=== PATIENT | female | born 1940 | race Caucasian/White ===

== ENCOUNTER → 2017-05-28 08:58 | Outpatient (CLI) | payer MEDICARE, BC, SELFPAY ==
--- NOTE | 2017-05-28 09:09 | HPBD_ITS ---
STUDY: DUAL ENERGY X-RAY ABSORPTIOMETRY / DXA REASON FOR EXAM: Female, 77 years old. The patient is postmenopausal. Loss of height. TECHNIQUE: Bone Mineral Density (BMD) measurements of lumbar spine and bilateral hips were obtained. COMPARISON: None. FINDINGS: Lumbar Spine (L1-L4): g/cm2 (1.023) / T-score (-1.3) / Z-score (0.5) Findings are suggestive of osteopenia with a moderate fracture risk. Left Femur Total: g/cm2 (0.847) / T-score (-1.3) / Z-score (0.6) Left Femoral Neck: g/cm2 (1.0-4) / T-score (-0.1) / Z-score (1.9) Right Femur Total: g/cm2 (0.832) / T-score (-1.4) / Z-score (0.5) Right Femoral Neck: g/cm2 (0.866) / T-score (-1.2) / Z-score (0.8) HPBD/Dexa Bone Density Study (HP) IMPRESSION: The patient is considered osteopenic as outlined below according to World Evan Organization (WHO) criteria with a moderate fracture risk. Reference Information: The T-score is the number of standard deviations above or below the standard which is normal for young adults at their peak bone mineral density. The World Health Organization (WHO) interprets the T-scores as follows: Above -1 Normal bone density Between -1 and -2.5 Osteopenia Equal to / or below -2.5 Osteoporosis As a practical clinical guideline, osteopenia may be graded as follows: Mild -1 through -1.5 Moderate -1.6 through -2.0 Severe -2.1 through -2.4 The Z-score is the number of standard deviations above or below age-matched controls. A Z-score of less than -1.5 would be considered abnormal. References: 1. NIH Osteoporosis and Related Bone Diseases http://www.osteo.org 2. International Society for Clinical Densitometry http://www.iscd.org 3. National Osteoporosis Foundation http://www.nof.org Electronically Signed: Srinivas Moreno MD at 13:00 EDT Tel [phone], Service support ,
--- NOTE | 2017-05-28 09:10 | HPBI_ITS ---
MAMMOGRAPHY - BILATERAL SCREENING REASON FOR EXAM: Female, 77 years old. Routine annual screening examination. PERTINENT HISTORY: Non-contributory. TECHNIQUE: Digital bilateral breast osorio (3D mammographic acquisition) in the CC and MLO projections. 2-D mediolateral oblique (MLO) and craniocaudad (CC) views of both breasts were obtained. CAD: Full Field Digital Mammography with Computer Added Detection was performed. COMPARISON: Comparison is made with prior x-ray examination dated February 13, 2016. FINDINGS: Breast Composition: The breasts are heterogeneously dense, which may obscure small masses. There are no dominant masses or suspicious calcifications. Stable scattered bilateral calcifications. No other significant abnormalities are identified. There has been no significant change since the prior study. HPBI/SCREENING MAMM (CAD), BILAT IMPRESSION: Stable bilateral screening mammogram. Yearly follow-up mammogram recommended. (A) ASSESSMENT CATEGORY: BIRADS Category 2: Benign. A letter regarding these results will be sent to the patient by the facility within 30 days. Approximately 10% of breast cancers are not detected by mammography. A normal mammogram should not delay biopsy of a clinically suspicious abnormality. [id number] Electronically Signed: Srinivas Moreno MD at 12:26 EDT Tel [phone], Service support ,
== END ==
PROVIDERS: Family Provider Nurse Practitioner; PCP Nurse Practitioner; Visit Provider Nurse Practitioner
DX: Z12.31 Encounter for screening mammogram for malignant neoplasm of breast (principal); Z78.0 Asymptomatic menopausal state
CPT/HCPCS: 77063; 77067; 77080

== ENCOUNTER → 2017-07-30 08:10 | Outpatient (CLI) | payer MEDICARE, BC, SELFPAY ==
[2017-07-30 09:21] LABS: Color, Urine Yellow (Yellow); Glucose, Dipstick Normal (Normal); Ketone-Dipstick Negative (Negative); Leukocyte Esterase-Dipstick 500 /ul (Negative); Nitrite-Dipstick Positive (Negative); Occult Blood-Urine Negative /ul (Negative); Protein-Dipstick 15 mg/dl (Negative); Urine Bilirubin Dipstick Negative (Negative); Urine Clarity Clear (Clear); Urine Urobilinogen Normal (Normal)
[2017-07-30 09:30] LABS: Absolute Lymphocyte Count 2.52 X10^3/ul (0.83-4.51); Absolute Neutrophil Count 3.3 X10^3/uL (2.0-7.7); Basophil# 0.02 X10^3/uL; Basophil% 0.3 % (0-1); Eosinophil# 0.13 X10^3/uL; Eosinophils% 2.1 % (0-5); Hematocrit 45.2 % (37-47); Hemoglobin 15.3 g/dl (12.0-15.0); Lymphocyte # 2.52 X10^3/ul (4.0); Lymphocyte % 39.9 % (19-41); Mean Corp Hgb Conc 33.8 g/gl (32-36); Mean Corpuscular Hgb 30.7 pg (27.0-32.0); Mean Corpuscular Volume 90.6 fL (81-99); Mean Platelet Vol. 11.1 fl (6.2-12.0); Monocyte# 0.38 X10^3/uL; Neutrophil # 3.26 X10^3/uL (2.7-7.7); Neutrophil % 51.5 % (47-70); Platelet Count 199 K/mm3 (150-450); RBC Distribution Width CV 13.3 % (11.6-14.6); RBC Distribution Width SD 43.4 fl (35.1-43.9); Red Blood Count 4.99 M/mm3 (4.2-5.4); White Blood Count 6.3 K/mm3 (4.4-11.0)
[2017-07-30 09:31] LABS: POSITIVE COUNT NO; POSITIVE DIFFERENTIAL NO; POSITIVE MORPHOLOGY NO
[2017-07-30 09:46] LABS: Microalbumin,Random Urine 9.5 mg/L (NO RANGE EST.); Microalbumin:Creatinine Ratio 13.6 mg/g CRE (<30 mg/g CRE)
[2017-07-30 10:08] LABS: AST(SGOT) 14 U/L (15-37); Alanine Aminotransfer ALT/SGPT 15 U/L (13-56); Albumin, Serum 3.7 g/dL (3.2-5.0); Alkaline Phosphatase 83 U/L (45-117); Anion Gap 9 (5-15); BUN 14 mg/dL (7-18); BUN/Creat Ratio 19.1 RATIO (10-20); Calcium,Total 8.9 mg/dL (8.5-10.1); Chloride 98 mmol/L (98-107); Cholesterol 214 mg/dL (200); Creatinine, Serum 0.73 mg/dL (0.55-1.02); EST Glomerular Filtration Rate 82 mL/min (>60); Est Glom Filt Rate - Afr Amer 99 mL/min (>60); Globulin 3.8 g/dL (2.2-4.2); Glucose 97 mg/dL (74-106); High Density Lipoprotein 51 mg/dL; Protein, Total 7.5 g/dL (6.4-8.2); Sodium Level 138 mmol/L (136-145); Thyroid Stim Hormone (TSH) 7.18 uIU/mL (0.358-3.74); Triglycerides 178 mg/dL; Very Low Density Lipoprotein 36 mg/dL (5-40)
== END ==
PROVIDERS: Family Provider Nurse Practitioner; PCP Nurse Practitioner; Visit Provider Nurse Practitioner
DX: I10 Essential (primary) hypertension (principal); E78.5 Hyperlipidemia, unspecified
CPT/HCPCS: 36415; 80053; 80061; 81002; 82043; 82570; 84443; 85025

== ENCOUNTER 2018-06-11 07:52 | Day surgery (SDC) | payer MEDICARE, BC, SELFPAY ==
[2018-06-03 09:17] VITALS: BMI 31.2
--- NOTE | 2018-06-03 09:27 | HP_ITS ---
Intake Vital Signs 06/03/18 Height 5 ft 4 in 06/03/18 Weight: 182 lb 06/03/18 Body Mass Index (BMI) 31.2 06/03/18 Blood Pressure 129/75 H 06/03/18 Blood Pressure Location Rt brachial 06/03/18 Blood Pressure Position Sitting 06/03/18 Respiratory Rate 20 H 06/03/18 Pulse Rate 70 06/03/18 Pulse Source Monitor 06/03/18 Temperature 98.2 F 06/03/18 Temperature Source Oral 06/03/18 Pulse Ox 95 06/03/18 Oxygen Delivery Method room air Intake Visit Reasons: SCREENING C-SCOPE HX OF POLYPS Evaporator Required: No Is patient in pain?: No Allergies No Known Allergies Allergy (Unverified 06/03/18 09:18) Medications fluticasone 50 mcg/actuation nasal spray,suspension 1 spray INTRANASAL DAILY 06/03/18 [History Confirmed 06/03/18] hydrochlorothiazide 12.5 mg tablet 12.5 mg PO DAILY 06/03/18 [History Confirmed 06/03/18] levothyroxine 50 mcg tablet 50 mcg PO DAILY 06/03/18 [History Confirmed 06/03/18] [id number]-HY 200 mcg-vit K 15 mcg-lycope 150 kqq-pchsqi-ivll tablet 2 tab PO DAILY 06/03/18 [History Confirmed 06/03/18] PFSH Medical History Hemorrhoids (Acute) Thyroid disease (Acute) Hypertension (Chronic) Surgical History History of hysterectomy (Acute) history orif left ankle (Acute) Social History Smoking Status: Never smoker alcohol intake: current alcohol intake frequency: a few times a month substance use type: does not use ROS General General: No weight change, appetite, fatigue, colon cancer, breast cancer or weakness HEENT HEENT: No difficulty swallowing, eye injury, eye surgery, swollen glands or hoarseness Endo Endocrine: Yes thyroid disease; no diabetes mellitus, thyroid cancer, Hair loss, heat intolerance or cold intolerance Skin Skin: No rash or changing moles Breast Breast: No left breast lump, right breast lump, nipple discharge, breast pain, abnormal mammogram, abnormal US or breast enlargement Musc Musculoskeletal: No back problems, arthritis, rheumatoid arthritis, gout or joint pain Cardio Cardiovascular: Yes high blood pressure; no murmur, pacemaker, heart disease, atrial fibrillation, heart attack, heart stent, palpitations, shortness of breat with exertion or chest pain Psych Psychiatric: No depression, anxiety or hearing voices Resp Respiratory: No shortness of breath, No sleep apnea, No cough, No COPD, No asthma, No emphysema, No wheezing Gastro Gastrointestinal: No abdominal pain, No nausea or vomiting, No diarrhea, No constipation, No blood in stool, No acid reflux, Yes hemorrhoids, No ulcers, No gallbladder problem, No black,tarry stools Reza Hematologic: No blood thinners, No blood disorders, No bleeding, No anemia, No blood clots Neuro Neurologic: No system reviewed and no additional complaints, except as docu, No as per HPI, No abnormal walking, No abnormal hearing, No abnormal movements, No abnormal speech, No behavioral changes, No burning sensations, No confusion, No seizure-like activity, No unsteadiness, No dizziness, No localized weakness, No frequent falls, No headache(s), No lack of coordination, No loss of vision, No memory loss, No numbness, No other visual disturbances, No radiating pain, No restless legs, No sensory deficit, No fainting, No tingling, No tremor(s), No weakness, No other Exam Const General: no acute distress, well developed, well hydrated Orientation: oriented to person, oriented to place, oriented to time [facility] Head: normocephalic, atraumatic Ears: external ears normal Mouth: moist mucous membranes Eyes Sclera: sclerae normal Pupils: normal by confrontation Neck Neck: no lymphadenopathy noted Neck mass: No Thyroid: thyroid normal, symmetrical Chest Chest palpation & inspection: normal inspection of the chest Breast Palpation: No nipple discharge Resp Effort & Inspection: normal respiratory effort Auscultation: clear to auscultation bilaterally Percussion: percussion normal Cardio Rate: regular rate Rhythm: regular rhythm Heart Sounds: no murmurs GI Palpation: soft, no hepatosplenomegaly, no masses, nontender Rectal Exam: other Other: Rectal exam deferred. Extrem General: normal to inspection, no clubbing, cyanosis or edema Assessment & Plan Problems 1. Personal history of colonic polyps Z86.010 Plan I have discussed the above with the patient. I have offered the patient colonoscopy for evaluation. I have explained the risks/benefits of the procedure and described the procedure. I have discussed the risks with the patient, including but not limited to: infection, bleeding, perforation of the GI tract requiring emergency surgery, inability to complete the procedure, injury to any internal organs, complications of anesthesia, etc. - the patient understands and agrees to proceed. I have answered all the patient's questions to the patient's satisfaction and the patient has no further questions. The patient has been given instructions for the colon cleansing preparation. Coding Level of Care Code Off vis,new,level 3 Diagnoses Personal history of colonic polyps Z86.010
[2018-06-11 08:15] VITALS: BP 139/69; PULSE 68; RESP 16; TEMP 36.8; O2SAT 98; BMI 30.6
[2018-06-11 09:05] VITALS: BP 114/66; BP 139/69; PULSE 61; RESP 14; TEMP 37; O2SAT 96
[2018-06-11 09:10] VITALS: BP 117/71; BP 139/69; PULSE 61; RESP 16; O2SAT 97
--- NOTE | 2018-06-11 09:11 | OP.ENDO_ITS ---
06/11/2018 Daphne Hidalgo, ANNELISE [address] [place] [address] Re : Colonoscopy procedure for Jessika Noser Dear Ms. Hidalgo This procedure was performed on Monday, June 11, 2018. My impressions and recommendations are as follows: Impressions : - Diverticulosis in the entire examined colon. No specimens collected. - Non-bleeding internal hemorrhoids. - The examination was otherwise normal. Recommendations : - Discharge patient to home. - Resume previous diet. - Continue present medications. - Repeat colonoscopy in 5 years for surveillance. - Return to my office in 1 week. My findings are described in the full procedure note, which is enclosed. If I can be of further assistance, please feel free to contact me at Doctor phone number(s): , Fax: [phone], Work: . Sincerely, MD Law Shrestha MD 06/11/2018 9:11:24 AM This report has been signed electronically.
[2018-06-11 09:15] VITALS: BP 116/68; BP 139/69; PULSE 60; RESP 16; O2SAT 97
[2018-06-11 09:20] VITALS: BP 121/63; BP 139/69; PULSE 60; RESP 16; TEMP 36.3; O2SAT 97
[2018-06-11 09:44] VITALS: BP 139/69
== END 2018-06-11 09:47 | disposition home or self-care (01) ==
LOC: EN 07:54 → AC 07:54
PROVIDERS: Family Provider Nurse Practitioner; PCP Nurse Practitioner; Referring Provider Nurse Practitioner; Visit Provider Surgery
PROC: 0DJD8ZZ Inspection of Lower Intestinal Tract, Via Natural or Artificial Opening Endoscopic (ICD-10-PCS; CPT 45378; principal; 2018-06-11 08:55)
DX: Z12.11 Encounter for screening for malignant neoplasm of colon (principal); K64.8 Other hemorrhoids; K57.30 Diverticulosis of large intestine without perforation or abscess without bleeding; Z86.010 Personal history of colon polyps; I10 Essential (primary) hypertension; E07.9 Disorder of thyroid, unspecified; Z79.899 Other long term (current) drug therapy
CPT/HCPCS: G0105; J7120

== ENCOUNTER → 2018-06-16 13:38 | Outpatient (CLI) | payer MEDICARE, BC, SELFPAY ==
[2018-06-11 08:15] VITALS: BMI 30.6
--- NOTE | 2018-06-16 13:43 | BI_ITS ---
MAMMOGRAPHY - BILATERAL SCREENING REASON FOR EXAM: Female, 78 years old. Routine annual screening examination. PERTINENT HISTORY: Non-contributory. TECHNIQUE: Digital bilateral breast osorio (3D mammographic acquisition) in the CC and MLO projections. 2-D mediolateral oblique (MLO) and craniocaudad (CC) views of both breasts were obtained. CAD: Full Field Digital Mammography with Computer Added Detection was performed. COMPARISON: Comparison is made with prior study dated May 28, 2017 and February 13, 2016. FINDINGS: Breast Composition: The breasts are heterogeneously dense, which may obscure small masses. There are no dominant masses or suspicious calcifications. Stable small bilateral axillary lymph nodes. No other significant abnormalities are identified. There has been no significant change since the prior study. BI/SCREENING MAMM (CAD), BILAT IMPRESSION: Stable bilateral screening mammogram. Yearly follow-up mammogram recommended. (A) ASSESSMENT CATEGORY: BIRADS Category 2: Benign. A letter regarding these results will be sent to the patient by the facility within 30 days. Approximately 10% of breast cancers are not detected by mammography. A normal mammogram should not delay biopsy of a clinically suspicious abnormality. [id number] Electronically Signed: Srinivas Moreno, at 16:00 EDT , Service support ,
== END ==
PROVIDERS: Family Provider Nurse Practitioner; PCP Nurse Practitioner; Referring Provider Nurse Practitioner; Visit Provider Nurse Practitioner
DX: Z12.31 Encounter for screening mammogram for malignant neoplasm of breast (principal)
CPT/HCPCS: 77063; 77067

== ENCOUNTER → 2019-04-03 10:32 | Outpatient (CLI) | payer MEDICARE, BC, SELFPAY ==
--- NOTE | 2019-04-03 10:35 | RAD_ITS ---
STUDY: X-RAY - LUMBAR SPINE REASON FOR EXAM: Female, 79 years old. RIGHT POSTERIOR LBP WITH RADIATION TECHNIQUE: 3 view(s) of the lumbar spine were obtained. COMPARISON: None FINDINGS: Normal lumbar lordosis. There is no substantial scoliosis. There is a normal alignment of the vertebrae. Normal vertebral bodies and endplates. Focal disc space narrowing and osteophyte formation at L2/L3 consistent with degenerative disc disease. The soft tissue structures are unremarkable. RAD/Lumbar Spine 2 or 3 Views IMPRESSION: Focal degenerative disc disease at L2/L3. MRI may be useful. Electronically Signed: Robert Abdul MD at 15:14 EST Tel , Service support ,
== END ==
PROVIDERS: PCP Nurse Practitioner; Referring Provider Nurse Practitioner; Visit Provider Nurse Practitioner
DX: M54.40 Lumbago with sciatica, unspecified side (principal)
CPT/HCPCS: 72100

== ENCOUNTER 2019-04-20 12:00 | Outpatient (RCR) | payer MEDICARE, BC, SELFPAY ==
--- NOTE | 2019-04-08 13:52 | HP.PTEVAL ---
Patient's Visit Information KATE MURRAY is a 79 year old F referred to Physical Therapy by SOBEIDA Chan with a diagnosis of BACK PAIN. Date of Evaluation: 04/08/19 Physical Therapist: Angela Stewart PT, Cert MDT - Visit Plan Frequency: 2-3x /Week Duration: 4-6 Weeks Plan: POSTURE CORRECTION/STRENGTHENING, INSTRUCTION IN APPROPRIATE BODY MECHANICS AND ACTIVITY MODIFICATIONS. DLS STARTING WITH A NEUTRAL SPINE PROGRESSING ROM TOLERATED. CISCO LE ROM, STRETCHING AND STRENGTHENING. HEP INSTRUCTION. *MINIMAL LIFTING > 10 LBS, BENDING, PUSHING, PULLING, TWISTING AND OVER HEAD EXTENSION FOR 4-6 WEEKS. - Subjective Findings: Work/Leisure: RETIRED. Disability: NO. Present symptoms: RIGHT LOW BACK, RIGHT HIP AND RIGHT THIGH PAIN. Present since: CHRONIC WITH FLARE UP THE END OF DEC 2018. GOT REALLY BAD MAR 2019 DAY AND NIGHT. RECIEVED SHOT 03/22/19 AND THAT HELPED. STILL ON STEROID NOW. ALSO ON MALOXACAM. FEELS MEDICINE IS HELPING. Pain Scale: WORST 3/10, LEAST 0/10. Currently: 0/10. Commenced as a result of: NO APPARENT REASON BUT DID HAVE COMPANY FROM [place] AND WAS DRIVING A LOT AND RIDING IN THE BACK SEAT A LOT AND WAS STANDING MORE THAN USUALLY LIKE AT THE [employer] FESTIVAL. ALSO SAT PLAYING CARDS MORE THAN USUALLY. Symptoms at onset: LOW BACK PAIN. Worse: 4AM INCREASED PAIN, PROLONGED STANDING, COOKING, PROLONGED SITTING, CISCO SDLY, REACHING OVER-HEAD. Better: SITTING IN RECLINER, LYING ON COUCH ON LEFT SIDE PROPPED UP (LYING ON LEFT SIDE IN BED MAKES IT WORSE). Disturbed sleep: YES. Previous history/Previous treatment: MAINLY SELF MANAGED. Coughing/sneezing/straining: POSITIVE. Gait: PRETTY NORMAL. Difficulty initiating urinatin: NORMAL. Accidents: FALL WITH LEFT ANKLE FX 20 YEARS AGO. ORIF. Unexplained weight loss: NO. Imaging: LOW BACK X-RAY - MINOR STENOSIS PER PATIENT REPORT. PMH: MACULAR DEGENERATION, HTN, HYPOTHYROIDISM - Objective Sitting/Standing Posture: POOR. Lordosis: REDUCED. Lateral shift: NO. Relevant shift: N/A. Active Correction of posture: BE. Other Observations: INDEP GAIT WITHOUT AD OR LOB BUT NEEDS GUIDANCE DUE TO MACULAR DEGENERATION. Motor deficit: CISCO LE STRENGTH GROSSLY 5/5 WITH MMT'ING EXCEPT RIGHT HIP 4-/5 AND LEFT HIP 4/5. Sensory deficit: CISCO LE LIGHT TOUCH SENSATION INTACT AND SYMMETRICAL. ROM deficit: MILD CISCO LE HS AND GASTROC SOLEUS TIGHTNESS. Reflexes: NT. Dural Signs: NEGATIVE CISCO LE'S. Lumbar mvmt loss: flex - NIL. ext - HEIDI. R SG - MOD. L SG - MOD. PATIENT DENIES PAIN WITH LUMBAR ROM TESTING. Core strength: POOR. Palpation: NO ACUTE LUMBOSACRAL TENDERNESS OR HIP TENDERNESS. TREATMENT: NEUROMUSCULAR REEDUCATION - RETRAINING OF MVMT AND POSTURE FOR SITTING, LYING AND STANDING ACTIVITIES. - Goals Goal 1:: DECREASE C/O BACK AND RIGHT LE PAIN Goal Time Frame: 4-6 Weeks Goal 2:: IMPROVE WALKING, SITTING, STANDING, SLEEP, SOCIAL LIFE, TRAVEL AND HOMEMAKING FUNCTION Goal Time Frame: 4-6 Weeks Goal 3:: INSTRUCT IN PROPHYLAXIS Goal Time Frame: 4-6 Weeks - Rehabilitation Potential Rehabilitation Potential: Fair - Anticipated Interventions Patient/Client Instruction: Educate patient on: Condition, Plan of Care, Risk Factors, Benefits of Fitness Program For the Purpose of:: To improve self management Therapeutic Exercise to Include: Strength training, Body mechanics, Postural training, Flexibilty training, Neuromotor development, Dynamic Lumbar Stabilization For the Purpose of:: To decrease pain, To increase ROM, To improve muscle performance and motor function, To increase tolerance to activity/condition/position, To improve ability of physical actions for home/community/work/leisure, To improve gait and locomotor functions Thank you for the opportunity to evaluate your patient. For Medicare and Medicare HMO plans, please review the plan of care and approve it. It will need to be FAXED BACK to us at [phone] for Medicare purposes. For Medicare only, by signing this I certify the plan of care. Please let me know if there are questions or concerns regarding this plan of care. Physician Signature: Date:
--- NOTE | 2019-04-20 12:32 | HP.PTDCSUM_ITS ---
HP - PT D/C Summary It has been my pleasure to treat KATE MURRAY under orders from Daphne Hidalgo, ANNELISE-C, for the diagnosis of BACK PAIN for a total of 6 visit(s). Discharge Date: Please see the following information for a summary of their discharge status. - Subjective Subjective: PATIENT REPORTS SHE IS DOING REALLY GOOD. STATES SHE DID HAVE A LITTLE PAIN AT [employer] IN HER RIGHT LOW BACK SATURDAY. SHE REPORTS THE KNEELING AND STANDING DIDN'T BOTHER HER AND THE LOW BACK PAIN WENT AWAY SOON THEY LEFT. PATIENT REPORTS SHE DOESN'T FEEL SHE NEEDS ANY MORE THERAPY FRANCHESCA'TS BECAUSE WHAT SHE IS DOING AT HOME IS HELPING AND SHE PLANS TO CONTINUE. - Pain LOW BACK Pain Intensity (Out of 10): 0 - Overall Improvement % Improvement: 100 - Objective Objective/Function: ALL GOALS MET. PATIENT HAS RESPONDED TO THERAPY VERY WELL AND IS INDEP WITH A HEP. SHE IS APPROPRIATE FOR DISCHARGE TO HEP AT THIS TIME. - Goals Goal 1:: DECREASE C/O BACK AND RIGHT LE PAIN Goal 2:: IMPROVE WALKING, SITTING, STANDING, SLEEP, SOCIAL LIFE, TRAVEL AND HOMEMAKING FUNCTION Goal 3:: INSTRUCT IN PROPHYLAXIS - Plan Plan: D/C. PATIENT AGREEABLE. - D/C Information If there are questions or concerns regarding this patient's physical therapy, please feel free to call me at [phone]. Thank you for the referral of this patient. Sincerely, Angela Stewart, PT, Cert MDT
== END 2019-04-20 19:00 | disposition home or self-care (01) ==
LOC: PT 12:00
PROVIDERS: PCP Nurse Practitioner; Visit Provider Nurse Practitioner
DX: M54.9 Dorsalgia, unspecified (principal)
CPT/HCPCS: 97110; 97112; 97162; 97164; 97530

== ENCOUNTER → 2021-07-11 | Outpatient (CLI) | payer MEDICARE, BC, SELFPAY ==
--- NOTE | 2021-07-11 11:16 | RAD_ITS ---
STUDY: X-RAY - PELVIS AND BILATERAL HIPS REASON FOR EXAM: Female, 81 years old. Hip pain. TECHNIQUE: AP view of the pelvis.? 2 views of the right hip, and 2 views of the left hip were obtained. COMPARISON: None. FINDINGS: There is a non-specific bowel gas pattern. Phleboliths. Osteopenia. Normal bilateral iliac wings, sacroiliac joints and visualized sacrum. Normal bilateral superior and inferior pubic rami. Normal pubic symphysis. Normal bilateral ischial tuberosities. Mild arthrosis of both hips without osteophytes. RAD/Hips B/L min 2 views w/ Pelvis IMPRESSION: Osteopenia with mild arthrosis of both hips. No acute abnormality, evidence of erosive change or fusion. Electronically Signed: Davey Nieto MD at 13:31 EDT ,
[2021-07-11 11:17] LABS: Mucous, Urine 0 SEEN /hpf (<or=2+); Red Blood Cells-Urine 0 SEEN /hpf (0-5); Squamous Epithelial Cells - UA 0 SEEN /hpf (5-10)
--- NOTE | 2021-07-11 11:18 | RAD_ITS ---
STUDY: X-RAY - LUMBAR SPINE REASON FOR EXAM: Female, 81 years old. BACK PAIN TECHNIQUE: XR Spine Lumbar Min 4 Views COMPARISON: Apr 03 2019 10:42am FINDINGS: Normal lumbar lordosis. There is no substantial scoliosis. There is a normal alignment of the vertebrae. There is multilevel endplate spondylosis of the lumbar vertebrae. There is multi-level degenerative disc disease with multi-level disc space narrowing. Discogenic endplate changes at L2-3. There are atherosclerotic vascular calcifications. Gallstones in the gallbladder. RAD/L/S Spine Min 4 Views IMPRESSION: Degenerative changes of the spine, as detailed above. This is progressed since the prior study Electronically Signed: Rick Mayes MD at 14:55 EDT ,
[2021-07-11 12:19] LABS: Absolute Lymphocyte Count 2.03 X10^3/uL (0.83-4.51); Absolute Neutrophil Count 5.2 X10^3/uL (2.0-7.7); Basophil# 0.02 X10^3/uL; Basophil% 0.3 % (0-1); Eosinophil# 0.08 X10^3/uL; Hematocrit 45.5 % (37-47); Hemoglobin 15.4 g/dL (12.0-15.0); Lymphocyte # 2.03 X10^3/ul (0.83-4.51); Lymphocyte % 25.9 % (19-41); Mean Corp Hgb Conc 33.8 g/dL (32-36); Mean Corpuscular Hgb 31.8 pg (27.0-32.0); Monocyte# 0.51 X10^3/uL; Monocyte% 6.5 % (0-10); NRBC Flagged by Analyzer 0 % (0-5); Neutrophil # 5.17 X10^3/uL (2.7-7.7); Neutrophil % 65.9 % (47-70); Platelet Count 235 K/mm3 (150-450); RBC Distribution Width CV 12.9 % (11.6-14.6); RBC Distribution Width SD 44.4 fl (35.1-43.9); Red Blood Count 4.84 M/mm3 (4.2-5.4); White Blood Count 7.8 K/mm3 (4.4-11.0)
[2021-07-11 12:25] LABS: Color, Urine Yellow (Yellow); Glucose, Dipstick Normal (Normal); Ketone-Dipstick Negative (Negative); Leukocyte Esterase-Dipstick 100 /ul (Negative); Nitrite-Dipstick Positive (Negative); Occult Blood-Urine 10 /ul (Negative); Protein-Dipstick Negative (Negative); Urine Bilirubin Dipstick Negative (Negative); Urine Clarity Clear (Clear); Urine Urobilinogen Normal (Normal)
[2021-07-11 12:35] LABS: Bacteria 2+ /hpf (None Seen); White Blood Cells 5-10 SEEN /hpf (0-5)
[2021-07-11 13:07] LABS: ALB/GLOB Ratio 0.9 RATIO (0.9-2.4); AST(SGOT) 15 U/L (15-37); Alanine Aminotransfer ALT/SGPT 21 U/L (13-56); Albumin, Serum 3.6 g/dL (3.2-5.0); Alkaline Phosphatase 89 U/L (45-117); Anion Gap 8 (5-15); BUN 15 mg/dL (7-18); BUN/Creat Ratio 21.6 RATIO (10-20); Calcium,Total 9.4 mg/dL (8.5-10.1); Chloride 95 mmol/L (98-107); Cholesterol 229 mg/dL (200); EST Glomerular Filtration Rate 86 mL/min (>60); Est Glom Filt Rate - Afr Amer 104 mL/min (>60); Globulin 3.9 g/dL (2.2-4.2); Glucose 94 mg/dL (74-106); High Density Lipoprotein 56 mg/dL; Potassium 3.8 mmol/L (3.5-5.1); Protein, Total 7.5 g/dL (6.4-8.2); Sodium Level 132 mmol/L (136-145); T4 Free Direct 1.11 ng/dL (0.76-1.46); Thyroid Stim Hormone (TSH) 4.29 uIU/mL (0.358-3.74); Triglycerides 172 mg/dL; Very Low Density Lipoprotein 34 mg/dL (5-40)
[2021-07-13 11:17] LABS: Thyroglobulin Antibody < 1.0 IU/mL (0.0-0.9); Thyroid Peroxidase AB 512 IU/mL (0-34)
== END | disposition home or self-care (01) ==
PROVIDERS: PCP Family Medicine; Referring Provider Family Medicine; Visit Provider Family Medicine
DX: I10 Essential (primary) hypertension (principal); E03.9 Hypothyroidism, unspecified; M47.816 Spondylosis without myelopathy or radiculopathy, lumbar region; M51.36 Other intervertebral disc degeneration, lumbar region; M48.061 Spinal stenosis, lumbar region without neurogenic claudication; M16.0 Bilateral primary osteoarthritis of hip
CPT/HCPCS: 72110; 73521; 80053; 80061; 81001; 84439; 84443; 85025; 86376; 86800

== ENCOUNTER 2021-08-08 08:24 | Outpatient (CLI) | payer MEDICARE, BC, SELFPAY ==
[2021-08-08 10:21] LABS: Absolute Lymphocyte Count 2.64 X10^3/uL (0.83-4.51); Absolute Neutrophil Count 3.7 X10^3/uL (2.0-7.7); Basophil# 0.04 X10^3/uL; Basophil% 0.6 % (0-1); Eosinophil# 0.16 X10^3/uL; Eosinophils% 2.3 % (0-5); Hematocrit 44.2 % (37-47); Hemoglobin 14.4 g/dL (12.0-15.0); Lymphocyte # 2.64 X10^3/ul (0.83-4.51); Lymphocyte % 37.3 % (19-41); Mean Corp Hgb Conc 32.6 g/dL (32-36); Mean Corpuscular Volume 95.3 fL (81-99); Mean Platelet Vol. 10.5 fl (6.2-12.0); Monocyte% 7.1 % (0-10); NRBC Flagged by Analyzer 0 % (0-5); Neutrophil # 3.72 X10^3/uL (2.7-7.7); Neutrophil % 52.4 % (47-70); Platelet Count 228 K/mm3 (150-450); RBC Distribution Width CV 13.2 % (11.6-14.6); RBC Distribution Width SD 46.5 fl (35.1-43.9); Red Blood Count 4.64 M/mm3 (4.2-5.4); White Blood Count 7.1 K/mm3 (4.4-11.0)
[2021-08-08 10:37] LABS: Anion Gap 7 (5-15); BUN 18 mg/dL (7-18); BUN/Creat Ratio 21.4 RATIO (10-20); Calcium,Total 9.2 mg/dL (8.5-10.1); Chloride 101 mmol/L (98-107); Creatinine, Serum 0.84 mg/dL (0.55-1.02); EST Glomerular Filtration Rate 69 mL/min (>60); Est Glom Filt Rate - Afr Amer 84 mL/min (>60); Ferritin 91 ng/mL (8-252); Glucose 113 mg/dL (74-106); Iron 68 ug/dL (50-170); Iron Binding Capacity,Total 342 ug/dL (250-450); Potassium 4.2 mmol/L (3.5-5.1); Sodium Level 134 mmol/L (136-145)
[2021-08-09 08:39] LABS: Transferrin 271 mg/dL (149-313)
== END 2021-08-08 23:59 | disposition home or self-care (01) ==
LOC: MFPLAB 08:27
PROVIDERS: PCP Family Medicine; Visit Provider Family Medicine
DX: E87.1 Hypo-osmolality and hyponatremia (principal); D75.1 Secondary polycythemia
CPT/HCPCS: 36415; 80048; 82728; 83540; 83550; 84466; 85025

== ENCOUNTER → 2021-11-09 | Outpatient (CLI) | payer MEDICARE, BC, SELFPAY ==
[2021-11-09 08:54] LABS: Mucous, Urine 0 SEEN /hpf (<or=2+); Red Blood Cells-Urine 0 SEEN /hpf (0-5)
[2021-11-09 10:20] LABS: Absolute Lymphocyte Count 2.14 X10^3/uL (0.83-4.51); Absolute Neutrophil Count 3.4 X10^3/uL (2.0-7.7); Basophil# 0.03 X10^3/uL; Basophil% 0.5 % (0-1); Eosinophil# 0.14 X10^3/uL; Eosinophils% 2.3 % (0-5); Hematocrit 44.6 % (37-47); Hemoglobin 14.6 g/dL (12.0-15.0); Lymphocyte # 2.14 X10^3/ul (0.83-4.51); Lymphocyte % 35.5 % (19-41); Mean Corp Hgb Conc 32.7 g/dL (32-36); Mean Corpuscular Hgb 30.7 pg (27.0-32.0); Mean Corpuscular Volume 93.7 fL (81-99); Monocyte# 0.34 X10^3/uL; Monocyte% 5.6 % (0-10); NRBC Flagged by Analyzer 0 % (0-5); Neutrophil # 3.35 X10^3/uL (2.7-7.7); Neutrophil % 55.8 % (47-70); Platelet Count 220 K/mm3 (150-450); RBC Distribution Width CV 13.9 % (11.6-14.6); Red Blood Count 4.76 M/mm3 (4.2-5.4)
[2021-11-09 10:20] LABS: Color, Urine Yellow (Yellow); Glucose, Dipstick Normal (Normal); Ketone-Dipstick Negative (Negative); Leukocyte Esterase-Dipstick 100 /ul (Negative); Nitrite-Dipstick Negative (Negative); Occult Blood-Urine Negative /ul (Negative); Protein-Dipstick Negative (Negative); Specific Gravity, Urine 1.015 (1.002-1.030); Urine Bilirubin Dipstick Negative (Negative); Urine Clarity Sl. Cloudy (Clear); Urine Urobilinogen Normal (Normal)
[2021-11-09 10:31] LABS: Bacteria 1+ /hpf (None Seen); Squamous Epithelial Cells - UA 0-5 SEEN /hpf (5-10); White Blood Cells 10-25 SEEN /hpf (0-5)
[2021-11-09 10:58] LABS: AST(SGOT) 14 U/L (15-37); Alanine Aminotransfer ALT/SGPT 22 U/L (13-56); Albumin, Serum 3.7 g/dL (3.2-5.0); Alkaline Phosphatase 75 U/L (45-117); Anion Gap 9 (5-15); BUN 17 mg/dL (7-18); BUN/Creat Ratio 21.5 RATIO (10-20); Chloride 98 mmol/L (98-107); Cholesterol 245 mg/dL (200); Creatinine, Serum 0.79 mg/dL (0.55-1.02); EST Glomerular Filtration Rate 74 mL/min (>60); Est Glom Filt Rate - Afr Amer 89 mL/min (>60); Globulin 3.7 g/dL (2.2-4.2); Glucose 103 mg/dL (74-106); High Density Lipoprotein 46 mg/dL; Potassium 4.3 mmol/L (3.5-5.1); Protein, Total 7.4 g/dL (6.4-8.2); Sodium Level 132 mmol/L (136-145); T4 Free Direct 1.11 ng/dL (0.76-1.46); Triglycerides 241 mg/dL; Very Low Density Lipoprotein 48 mg/dL (5-40)
== END | disposition home or self-care (01) ==
LOC: MFPLAB 08:51
PROVIDERS: PCP Family Medicine; Visit Provider Family Medicine
DX: I10 Essential (primary) hypertension (principal); E03.8 Other specified hypothyroidism
CPT/HCPCS: 36415; 80053; 80061; 81001; 84439; 84443; 85025

== ENCOUNTER → 2022-03-08 | Outpatient (CLI) | payer MEDICARE, BC, SELFPAY ==
--- NOTE | 2022-03-08 09:47 | BD_ITS ---
STUDY: DUAL ENERGY X-RAY ABSORPTIOMETRY / DXA REASON FOR EXAM: Female, 82 years old. [id number] TECHNIQUE: Bone Mineral Density (BMD) measurements of lumbar spine and bilateral hips were obtained. COMPARISON: Comparison is made with prior study from 05/28/2017. FINDINGS: Lumbar Spine (L1-L4): g/cm2 (0.733) / T-score (-2.8) / Z-score (0.0) Findings are suggestive of osteoporosis with a high fracture risk. Left Femur Total: g/cm2 (0.716) / T-score (-1.9) / Z-score (0.3) Left Femoral Neck: g/cm2 (0.625) / T-score (-2.0) / Z-score (0.4) Right Femur Total: g/cm2 (0.759) / T-score (-1.5) / Z-score (0.7) Right Femoral Neck: g/cm2 (0.667) / T-score (-1.7) / Z-score (0.8) The T-Scores on the most recent prior examination were: Lumbar Spine (L1-L4): There has been worsening of bone density since the previous examination. Left Femur Total: which represents a worsening of 8.9%. Right Femur Total: which represents a worsening of 1.6%. BD/Dexa Bone Density Study IMPRESSION: The patient is considered osteoporotic as outlined below according to World Evan Organization (WHO) criteria with a high fracture risk. There has been worsening of bone density since the previous examination. Reference Information: The T-score is the number of standard deviations above or below the standard which is normal for young adults at their peak bone mineral density. The World Health Organization (WHO) interprets the T-scores as follows: Above -1 Normal bone density Between -1 and -2.5 Osteopenia Equal to / or below -2.5 Osteoporosis As a practical clinical guideline, osteopenia may be graded as follows: Mild -1 through -1.5 Moderate -1.6 through -2.0 Severe -2.1 through -2.4 The Z-score is the number of standard deviations above or below age-matched controls. A Z-score of less than -1.5 would be considered abnormal. References: 1. NIH Osteoporosis and Related Bone Diseases www osteo.org 2. International Society for Clinical Densitometry www iscd.org 3. National Osteoporosis Foundation www nof.org Electronically Signed: Srinivas Moreno MD at 16:41 EST ,
== END | disposition home or self-care (01) ==
LOC: OPBD 09:42
PROVIDERS: PCP Family Medicine; Visit Provider Family Medicine
DX: M85.80 Other specified disorders of bone density and structure, unspecified site (principal); Z78.0 Asymptomatic menopausal state; V49.81XA Car occupant (driver) (passenger) injured in transport accident with military vehicle, initial encounter
CPT/HCPCS: 77080

== ENCOUNTER → 2022-03-29 | Outpatient (CLI) | payer MEDICARE, BC, SELFPAY ==
[2022-03-29 16:52] LABS: ALB/GLOB Ratio 1.2 RATIO (0.9-2.4); AST(SGOT) 9 U/L (15-37); Alanine Aminotransfer ALT/SGPT 21 U/L (13-56); Alkaline Phosphatase 75 U/L (45-117); Anion Gap 11 (5-15); BUN 19 mg/dL (7-18); BUN/Creat Ratio 28.3 RATIO (10-20); Calcium,Total 9.2 mg/dL (8.5-10.1); Chloride 97 mmol/L (98-107); Creatinine, Serum 0.67 mg/dL (0.55-1.02); EST Glomerular Filtration Rate 89 mL/min (>60); Est Glom Filt Rate - Afr Amer 108 mL/min (>60); Globulin 3.2 g/dL (2.2-4.2); Glucose 88 mg/dL (74-106); Potassium 4.4 mmol/L (3.5-5.1); Protein, Total 7.2 g/dL (6.4-8.2); Sodium Level 135 mmol/L (136-145)
== END | disposition home or self-care (01) ==
LOC: MFPLAB 13:46
PROVIDERS: PCP Family Medicine; Visit Provider Family Medicine
DX: M81.0 Age-related osteoporosis without current pathological fracture (principal)
CPT/HCPCS: 36415; 80053; 82306

== ENCOUNTER → 2022-06-07 | Outpatient (CLI) | payer MEDICARE, BC, SELFPAY ==
[2022-06-07 08:32] LABS: Mucous, Urine 0 SEEN /hpf (<or=2+); Red Blood Cells-Urine 0 SEEN /hpf (0-5); Squamous Epithelial Cells - UA 0 SEEN /hpf (5-10)
[2022-06-07 10:16] LABS: Absolute Lymphocyte Count 1.69 X10^3/uL (0.83-4.51); Absolute Neutrophil Count 3.7 X10^3/uL (2.0-7.7); Basophil# 0.02 X10^3/uL; Basophil% 0.3 % (0-1); Color, Urine Yellow (Yellow); Eosinophil# 0.18 X10^3/uL; Glucose, Dipstick Normal (Normal); Hematocrit 42.1 % (37-47); Hemoglobin 13.8 g/dL (12.0-15.0); Ketone-Dipstick Negative (Negative); Leukocyte Esterase-Dipstick 100 /ul (Negative); Lymphocyte # 1.69 X10^3/ul (0.83-4.51); Lymphocyte % 27.9 % (19-41); Mean Corp Hgb Conc 32.8 g/dL (32-36); Mean Corpuscular Hgb 31.4 pg (27.0-32.0); Mean Corpuscular Volume 95.7 fL (81-99); Mean Platelet Vol. 9.8 fl (6.2-12.0); Monocyte# 0.48 X10^3/uL; Monocyte% 7.9 % (0-10); NRBC Flagged by Analyzer 0 % (0-5); Neutrophil # 3.66 X10^3/uL (2.7-7.7); Neutrophil % 60.6 % (47-70); Nitrite-Dipstick Positive (Negative); Occult Blood-Urine Negative /ul (Negative); Platelet Count 248 K/mm3 (150-450); Protein-Dipstick Negative (Negative); RBC Distribution Width CV 12.5 % (11.6-14.6); RBC Distribution Width SD 44.1 fl (35.1-43.9); Urine Bilirubin Dipstick Negative (Negative); Urine Clarity Clear (Clear); Urine Urobilinogen Normal (Normal); White Blood Count 6.1 K/mm3 (4.4-11.0)
[2022-06-07 10:26] LABS: AST(SGOT) 10 U/L (15-37); Alanine Aminotransfer ALT/SGPT 22 U/L (13-56); Albumin, Serum 3.5 g/dL (3.2-5.0); Alkaline Phosphatase 68 U/L (45-117); Anion Gap 6 (5-15); BUN 14 mg/dL (7-18); Chloride 102 mmol/L (98-107); Cholesterol 204 mg/dL (200); EST Glomerular Filtration Rate 85 mL/min (>60); Est Glom Filt Rate - Afr Amer 103 mL/min (>60); Globulin 3.4 g/dL (2.2-4.2); Glucose 109 mg/dL (74-106); High Density Lipoprotein 47 mg/dL; Potassium 4.3 mmol/L (3.5-5.1); Protein, Total 6.9 g/dL (6.4-8.2); Sodium Level 136 mmol/L (136-145); T4 Free Direct 1.11 ng/dL (0.76-1.46); Thyroid Stim Hormone (TSH) 2.65 uIU/mL (0.358-3.74); Triglycerides 178 mg/dL; Very Low Density Lipoprotein 36 mg/dL (5-40)
[2022-06-07 10:32] LABS: Bacteria 2+ /hpf (None Seen); White Blood Cells 5-10 SEEN /hpf (0-5)
[2022-06-07 16:28] LABS: Hemoglobin A1c 5.2 % (3.8-5.6)
== END | disposition home or self-care (01) ==
LOC: MFPLAB 08:27
PROVIDERS: PCP Family Medicine; Referring Provider Family Medicine; Visit Provider Family Medicine
DX: I10 Essential (primary) hypertension (principal); E03.8 Other specified hypothyroidism; R73.09 Other abnormal glucose
CPT/HCPCS: 36415; 80053; 80061; 81001; 83036; 84439; 84443; 85025

== ENCOUNTER → 2022-11-15 | Outpatient (CLI) | payer MEDICARE, BC, SELFPAY ==
[2022-11-15 15:31] LABS: Absolute Lymphocyte Count 2.14 X10^3/uL (0.83-4.51); Absolute Neutrophil Count 3.4 X10^3/uL (2.0-7.7); Basophil# 0.04 X10^3/uL; Basophil% 0.7 % (0-1); Eosinophil# 0.16 X10^3/uL; Eosinophils% 2.6 % (0-5); Hematocrit 45.3 % (37-47); Hemoglobin 14.2 g/dL (12.0-15.0); Lymphocyte # 2.14 X10^3/ul (0.83-4.51); Lymphocyte % 35.4 % (19-41); Mean Corp Hgb Conc 31.3 g/dL (32-36); Mean Corpuscular Hgb 29.6 pg (27.0-32.0); Mean Corpuscular Volume 94.4 fL (81-99); Mean Platelet Vol. 10.1 fl (6.2-12.0); Monocyte# 0.31 X10^3/uL; Monocyte% 5.1 % (0-10); NRBC Flagged by Analyzer 0 % (0-5); Neutrophil # 3.38 X10^3/uL (2.7-7.7); Neutrophil % 55.9 % (47-70); Platelet Count 239 K/mm3 (150-450); RBC Distribution Width CV 13.9 % (11.6-14.6); RBC Distribution Width SD 48.2 fl (35.1-43.9); White Blood Count 6.1 K/mm3 (4.4-11.0)
[2022-11-15 16:05] LABS: AST(SGOT) 14 U/L (15-37); Alanine Aminotransfer ALT/SGPT 19 U/L (13-56); Albumin, Serum 3.8 g/dL (3.2-5.0); Alkaline Phosphatase 91 U/L (45-117); Anion Gap 8 (5-15); BUN 14 mg/dL (7-18); BUN/Creat Ratio 17.7 RATIO (10-20); Calcium,Total 9.2 mg/dL (8.5-10.1); Chloride 102 mmol/L (98-107); Cholesterol 244 mg/dL (200); Creatinine, Serum 0.79 mg/dL (0.55-1.02); EST Glomerular Filtration Rate 74 mL/min (>60); Est Glom Filt Rate - Afr Amer 89 mL/min (>60); Globulin 3.7 g/dL (2.2-4.2); Glucose 97 mg/dL (74-106); High Density Lipoprotein 56 mg/dL; Potassium 4.2 mmol/L (3.5-5.1); Protein, Total 7.5 g/dL (6.4-8.2); Sodium Level 135 mmol/L (136-145); T4 Free Direct 1.06 ng/dL (0.76-1.46); Thyroid Stim Hormone (TSH) 3.16 uIU/mL (0.358-3.74); Triglycerides 168 mg/dL; Very Low Density Lipoprotein 34 mg/dL (5-40)
[2022-11-15 16:18] LABS: Hemoglobin A1c 5.2 % (3.8-5.6)
[2022-11-15 16:39] LABS: Vitamin D,25 Hydroxy 47.2 ng/mL
== END | disposition home or self-care (01) ==
LOC: MTLAB 10:43
PROVIDERS: PCP Family Medicine; Visit Provider Family Medicine
DX: R73.09 Other abnormal glucose (principal); E03.8 Other specified hypothyroidism; I10 Essential (primary) hypertension; M81.0 Age-related osteoporosis without current pathological fracture
CPT/HCPCS: 36415; 80053; 80061; 82306; 83036; 84439; 84443; 85025

== ENCOUNTER → 2023-05-21 | Outpatient (CLI) | payer MEDICARE, BC, SELFPAY ==
[2023-05-21 09:13] LABS: Mucous, Urine 0 SEEN /hpf (<or=2+)
[2023-05-21 10:12] LABS: Absolute Lymphocyte Count 1.68 X10^3/uL (0.83-4.51); Absolute Neutrophil Count 3.8 X10^3/uL (2.0-7.7); Basophil# 0.04 X10^3/uL; Basophil% 0.7 % (0-1); Eosinophil# 0.16 X10^3/uL; Eosinophils% 2.7 % (0-5); Hematocrit 45.1 % (37-47); Hemoglobin 14.5 g/dL (12.0-15.0); Lymphocyte # 1.68 X10^3/ul (0.83-4.51); Lymphocyte % 27.9 % (19-41); Mean Corp Hgb Conc 32.2 g/dL (32-36); Mean Corpuscular Hgb 29.6 pg (27.0-32.0); Mean Platelet Vol. 10.3 fl (6.2-12.0); Monocyte# 0.38 X10^3/uL; Monocyte% 6.3 % (0-10); NRBC Flagged by Analyzer 0 % (0-5); Neutrophil # 3.75 X10^3/uL (2.7-7.7); Neutrophil % 62.1 % (47-70); Platelet Count 206 K/mm3 (150-450); RBC Distribution Width CV 14.4 % (11.6-14.6); RBC Distribution Width SD 48.8 fl (35.1-43.9)
[2023-05-21 10:20] LABS: Color, Urine Yellow (Yellow); Glucose, Dipstick Normal (Normal); Ketone-Dipstick 5 mg/dl (Negative); Leukocyte Esterase-Dipstick 25 /ul (Negative); Nitrite-Dipstick Negative (Negative); Occult Blood-Urine 10 /ul (Negative); Protein-Dipstick Negative (Negative); Urine Bilirubin Dipstick Negative (Negative); Urine Clarity Clear (Clear); Urine Urobilinogen Normal (Normal); Urine pH 6.5 (5.0 - 8.0)
[2023-05-21 10:31] LABS: Bacteria 4+ /hpf (None Seen); Red Blood Cells-Urine 0-5 SEEN /hpf (0-5); Squamous Epithelial Cells - UA 0-5 SEEN /hpf (5-10); Vitamin D,25 Hydroxy 51.3 ng/mL; White Blood Cells 5-10 SEEN /hpf (0-5)
[2023-05-21 11:09] LABS: AST(SGOT) 21 U/L (15-37); Alanine Aminotransfer ALT/SGPT 87 U/L (13-56); Albumin, Serum 3.6 g/dL (3.2-5.0); Alkaline Phosphatase 116 U/L (45-117); Anion Gap 8 (5-15); BUN 24 mg/dL (7-18); BUN/Creat Ratio 26.9 RATIO (10-20); Calcium,Total 9.5 mg/dL (8.5-10.1); Chloride 102 mmol/L (98-107); Cholesterol 222 mg/dL (200); Creatinine, Serum 0.89 mg/dL (0.55-1.02); EST Glomerular Filtration Rate 64 mL/min (>60); Est Glom Filt Rate - Afr Amer 78 mL/min (>60); Globulin 3.6 g/dL (2.2-4.2); Glucose 112 mg/dL (74-106); High Density Lipoprotein 53 mg/dL; Magnesium 2.1 mg/dL (1.6-2.6); Potassium 4.4 mmol/L (3.5-5.1); Protein, Total 7.2 g/dL (6.4-8.2); Sodium Level 136 mmol/L (136-145); T4 Free Direct 1.06 ng/dL (0.76-1.46); Thyroid Stim Hormone (TSH) 3.29 uIU/mL (0.358-3.74); Triglycerides 158 mg/dL; Very Low Density Lipoprotein 32 mg/dL (5-40)
== END | disposition home or self-care (01) ==
LOC: MFPLAB 09:11
PROVIDERS: PCP Family Medicine; Visit Provider Family Medicine
DX: I10 Essential (primary) hypertension (principal); E03.8 Other specified hypothyroidism; M81.0 Age-related osteoporosis without current pathological fracture
CPT/HCPCS: 36415; 80053; 80061; 81001; 82306; 83735; 84439; 84443; 85025

== ENCOUNTER → 2023-09-20 | Outpatient (CLI) | payer MEDICARE, BC, SELFPAY ==
[2023-09-20 12:27] LABS: Absolute Lymphocyte Count 1.38 X10^3/uL (0.83-4.51); Absolute Neutrophil Count 2.9 X10^3/uL (2.0-7.7); Basophil# 0.03 X10^3/uL; Basophil% 0.6 % (0-1); Eosinophil# 0.13 X10^3/uL; Eosinophils% 2.7 % (0-5); Hematocrit 42.3 % (37-47); Hemoglobin 13.9 g/dL (12.0-15.0); Lymphocyte # 1.38 X10^3/ul (0.83-4.51); Lymphocyte % 28.4 % (19-41); Mean Corp Hgb Conc 32.9 g/dL (32-36); Mean Corpuscular Volume 91.2 fL (81-99); Mean Platelet Vol. 10.5 fl (6.2-12.0); Monocyte# 0.38 X10^3/uL; Monocyte% 7.8 % (0-10); NRBC Flagged by Analyzer 0 % (0-5); Neutrophil # 2.92 X10^3/uL (2.7-7.7); Neutrophil % 60.1 % (47-70); Platelet Count 174 K/mm3 (150-450); RBC Distribution Width CV 13.4 % (11.6-14.6); Red Blood Count 4.64 M/mm3 (4.2-5.4); White Blood Count 4.9 K/mm3 (4.4-11.0)
[2023-09-20 12:50] LABS: Vitamin D,25 Hydroxy 66.4 ng/mL
[2023-09-20 13:03] LABS: ALB/GLOB Ratio 1.1 RATIO (0.9-2.4); AST(SGOT) 16 U/L (15-37); Alanine Aminotransfer ALT/SGPT 17 U/L (13-56); Albumin, Serum 3.6 g/dL (3.2-5.0); Alkaline Phosphatase 90 U/L (45-117); Anion Gap 7 (5-15); BUN 19 mg/dL (7-18); BUN/Creat Ratio 23.6 RATIO (10-20); Calcium,Total 9.1 mg/dL (8.5-10.1); Chloride 103 mmol/L (98-107); Cholesterol 199 mg/dL (200); EST Glomerular Filtration Rate 72 mL/min (>60); Est Glom Filt Rate - Afr Amer 87 mL/min (>60); Globulin 3.2 g/dL (2.2-4.2); Glucose 113 mg/dL (74-106); High Density Lipoprotein 46 mg/dL; Magnesium 2.1 mg/dL (1.6-2.6); Potassium 4.3 mmol/L (3.5-5.1); Protein, Total 6.8 g/dL (6.4-8.2); Sodium Level 134 mmol/L (136-145); Thyroid Stim Hormone (TSH) 0.11 uIU/mL (0.358-3.74); Triglycerides 167 mg/dL; Very Low Density Lipoprotein 33 mg/dL (5-40)
== END | disposition home or self-care (01) ==
LOC: MFPLAB 10:06
PROVIDERS: PCP Family Medicine; Visit Provider Family Medicine
DX: M81.0 Age-related osteoporosis without current pathological fracture (principal); I10 Essential (primary) hypertension; E03.8 Other specified hypothyroidism
CPT/HCPCS: 36415; 80053; 80061; 82306; 83735; 84439; 84443; 85025

== ENCOUNTER 2023-10-11 01:57 | Inpatient (IN) | payer MEDICARE, BC, SELFPAY ==
[2023-10-11] VITALS (10 sets, daily range): BP systolic 116–170; BP diastolic 69–91; PULSE 78–97; RESP 18–20; TEMP 36.1–36.8; O2SAT 92–100; BMI 34.4; BMI 33.5
--- NOTE | 2023-10-11 02:05 | EKG12_ITS ---
Test Reason : CP Blood Pressure : / mmHG Vent. Rate : 099 BPM Atrial Rate : 099 BPM P-R Int : 158 ms QRS Dur : 080 ms QT Int : 332 ms P-R-T Axes : 064 078 -09 degrees QTc Int : 426 ms Normal sinus rhythm T wave abnormality, consider inferior ischemia Abnormal ECG Confirmed by SARITA FRAZIER, ZOE ([id number]), sports editor SAURABH WEN ([id number]) on 10/11/2023 9:34:12 AM Referred By: TL Confirmed By:ZOE STEIN MD
--- NOTE | 2023-10-11 02:06 | ED.VIS.CHEST ---
HPI History of Present Illness Chief Complaint: Chest Pain Informant: patient and spouse/S.O. Narrative Narrative: By EMS for chest pain with deep breath starting around 9 PM. States also worse with movement. States at 9 PM neck pain and left shoulder left-sided chest. Dry cough for 2 weeks. Started secondary to allergies. However has had dyspnea with exertion for the past 7 days. Denies recent travel surgeries or immobilizations. No history of PE or DVT. History hypothyroidism sleep apnea with CPAP at night no home oxygen. History of hypertension. Denies tobacco history. Apparently pulse ox 90% room air on EMS arrival she is placed on nasal cannula on arrival. Denies any fevers. No history of stress test. Reports pain currently at 3. Prior Similar Symptoms: No CVD Risk Factors: Positive for Hypertension; Negative for Diabetes, Hypercholesterolemia or Smoking PE Risk Factors: Negative for Recent Travel/Surgery, Recent Immobilization or Prior DVT or PE [facility] Medical History Macular degeneration Hemorrhoids Hypertension Thyroid disease Home Medications ?Medication ?Instructions ?Recorded ?Last Taken ?Type fluticasone propionate 50 1 spray intranasal DAILY 06/03/18 Unknown History mcg/actuation nasal spray,suspension (Flonase Allergy Relief) hydrochlorothiazide 12.5 mg tablet 12.5 mg PO DAILY 06/03/18 06/11/18 05:00 History levothyroxine 75 mcg tablet 75 mcg PO DAILY 10/11/23 Unknown History losartan 100 mg tablet 100 mg PO DAILY 10/11/23 Unknown History Allergy/AdvReac Type Severity Reaction Status Date / Time No Known Allergies Allergy Unverified 06/11/18 08:14 Family History (Updated 10/11/23 @ 04:[address] James Davidson DO) Other Heart disease Surgical History history orif left ankle History of hysterectomy Social History Smoking Status: Never smoker alcohol intake: current alcohol intake frequency: a few times a month substance use type: does not use ROS ROS ED Constitutional Constitutional ED: Denies chills, fever(s) or sweats Eyes Eyes: Denies change in vision ENT ENT ED: Denies dysphagia or sore throat Cardiovascular Cardiovascular: Reports chest pain; Denies leg edema, palpitations or racing heartbeat Respiratory/Chest Respiratory/Chest: Reports dyspnea and dyspnea on exertion; Denies cough Gastrointestinal Gastrointestinal: Denies abdominal pain, diarrhea, nausea or vomiting Genitourinary Genitourinary ED: Denies dysuria, hematuria or urinary frequency Musculoskeletal Musculoskeletal: Denies back pain, extremity pain or neck pain Integumentary Denies rash or wounds Neurologic Neurologic: Denies headache(s), paresthesias or weakness EXAM Physical Exam Const Vital Signs: 10/11/23 01:58 10/11/23 02:07 10/11/23 03:15 Temperature 98 F Temperature Source Oral Pulse Rate 97 Respiratory Rate 19 H Respiratory Effort Normal Blood Pressure 170/91 H Blood Pressure Mean 117 Pulse Ox 96 Oxygen Delivery Method Nasal Cannula Nasal Cannula Oxygen Flow Rate (L/min) 2 2 10/11/23 04:03 Temperature Temperature Source Pulse Rate 86 Respiratory Rate 18 Respiratory Effort Blood Pressure 137/82 H Blood Pressure Mean 100 Pulse Ox 96 Oxygen Delivery Method Nasal Cannula Oxygen Flow Rate (L/min) 2 Positive well nourished and well developed Constitutional Narrative: 2 L nasal cannula no respiratory distress. General Appearance ED: well developed and NAD HEENT Reports moist mucous membranes normocephalic and atraumatic Eyes EOMs intact bilaterally and conjunctivae normal General Eye ED: Yes normal appearance of both eyes Neck no lymphadenopathy and supple General: Negative for tenderness Chest Wall Chest: Negative for tenderness Resp normal respiratory effort and normal air movement Resp Narrative: Symmetric breath sounds Effort and Inspection: symmetric chest movement; Negative for respiratory distress Cardio regular rate, regular rhythm and no murmurs Peripheral Pulses: pulses 2+ throughout GI normal to inspection, nondistended, normoactive bowel sounds and non-tender Palpation: Negative for guarding or rebound tenderness present Back/Spine no CVA tenderness and no thoracic nor lumbar tenderness Extremity normal to inspection General Extremety ED: Negative for edema or tenderness General Extremity: Negative for edema Neuro oriented x3 and no sensory deficits noted Sensorium / Orientation: awake and alert Skin no rashes or lesions noted and no wounds Heart Score History: Slightly/Non-Suspicious ECG: Normal Age: >/= 65 years Risk Factors: 1 or 2 Risk Factors Troponin: </= Normal Limit Score: 3 MDM MDM MDM Narrative Medical decision making narrative: Interventions / MDM: Differential diagnosis: Pulmonary embolism, atypical chest pain Diagnosis considered but do not suspect: ACS however EKG no ischemic changes, negative cardiac enzyme, pneumothorax however image studies negative. My EKG interpretation: Sinus rate of 99, no ST changes. T wave inversion leads III and aVF. No old for comparison. Imaging independently reviewed and interpreted by myself: CTA chest: Bilateral pulmonary embolism with right heart strain discussion with radiology. External documents reviewed: N/A Test considered but not ordered:N/A ED course: Patient presenting with chest pain symptoms worse with deep breaths. Patient is having exertional dyspnea over the last week dry cough for 2 weeks. Pulse ox was 90% on room air without any tobacco history. She had no PE risk factors however having exertional symptoms. Cardiac workup initiated along with a D-dimer. EKG with no acute findings. Labs white count returned at 15.2 she had no urinary symptoms. Initial troponin 22. D-dimer elevated 8.2, CT of the chest ordered for further evaluation. She is stable on 2 L. Results of PE study was positive bilateral PEs right greater than left there is right heart strain in discussion with radiology. Symptomatic progressive over the past week. It is unprovoked without any risk factors. She started on heparin drip. I discussed with hospitalist Dr. Davidson for admission to PCU. Re-evaluation: stable Disposition discussed with patient/family/significant other: Patient and significant other Case discussed with consulting clinician: Hospitalist This note was generated with [employer] dictation software. It may contain incorrect words, spelling, and punctuation that were not noted in checking the note before signing. Lab Data Attestation: I reviewed the patient's lab results. Labs: Laboratory Results - last 24 hr 10/11/23 01:42 WBC 15.2 H RBC 5.17 Hgb 15.4 H Hct 46.8 MCV 90.5 MCH 29.8 MCHC 32.9 RDW Std Deviation 43.0 RDW Coeff of Rosa Isela 13.0 Plt Count 179 MPV 10.9 Immature Gran % (Auto) 0.500 Neut % (Auto) 81.7 H Lymph % (Auto) 12.4 L [place] % (Auto) 4.9 Eos % (Auto) 0.2 Baso % (Auto) 0.3 Absolute Neuts (auto) 12.4 H Absolute Lymphs (auto) 1.89 Nucleated RBC % 0 PT 13.0 INR 1.0 APTT 28.3 D-Dimer Quant (PE/DVT) 8.20 H* Sodium 136 Potassium 4.0 Chloride 104 Carbon Dioxide 23.0 Anion Gap 9 BUN 19 H Creatinine 1.00 Estim Creat Clear Calc 45.30 Est GFR (MDRD) Af Amer 68 Est GFR (MDRD) Non-Af 56 L BUN/Creatinine Ratio 19.0 Glucose 162 H Calcium 9.8 Troponin I High Sens 22 Radiography Diagnostic Testing: Clinical Impression(s) from Imaging Studies Chest CTA 10/11/23 02:49 IMPRESSION: Positive for PDE bilaterally with evidence of right heart strain. No associated pulmonary infarction. Electronically Signed: Parish Nogueira MD at 3:55 EDT , ADDENDUM: 10/11/23 0403 IMPRESSION: Positive for PDE bilaterally with evidence of right heart strain. No associated pulmonary infarction. N.B. : The above Results were Read Back by Parish Nogueira MD to Gabo Cedillo MD, and understanding confirmed on 10/11/2023 03:56:59 (ET). Electronically Signed: Parish Nogueira MD at 3:55 EDT , ADDENDUM: 10/11/23 0406 IMPRESSION: Positive for PE bilaterally with evidence of right heart strain. No saddle embolism or pulmonary infarction. Dr. Cedillo was notified of the findings at 12:56 AM [place] time on 10/11/2023. Electronically Signed: Parish Nogueira MD at 3:59 EDT , N.B. : The above Results were Read Back by Parish Nogueira MD to Gabo Cedillo MD, and understanding confirmed on 10/11/2023 03:56:59 (ET). Discharge Plan Dx/Rx/DC Orders Clinical Impression: Bilateral pulmonary embolism, Atypical chest pain, Exertional dyspnea Disposition Disposition: Acute Care Hospital [facility] Discharge Date/Time: 10/11/23 04:32
[2023-10-11 02:13] LABS: Absolute Lymphocyte Count 1.89 X10^3/uL (0.83-4.51); Absolute Neutrophil Count 12.4 X10^3/uL (2.0-7.7); Basophil# 0.04 X10^3/uL; Basophil% 0.3 % (0-1); Eosinophil# 0.03 X10^3/uL; Eosinophils% 0.2 % (0-5); Hematocrit 46.8 % (37-47); Hemoglobin 15.4 g/dL (12.0-15.0); Lymphocyte # 1.89 X10^3/ul (0.83-4.51); Lymphocyte % 12.4 % (19-41); Mean Corp Hgb Conc 32.9 g/dL (32-36); Mean Corpuscular Hgb 29.8 pg (27.0-32.0); Mean Corpuscular Volume 90.5 fL (81-99); Mean Platelet Vol. 10.9 fl (6.2-12.0); Monocyte# 0.74 X10^3/uL; Monocyte% 4.9 % (0-10); NRBC Flagged by Analyzer 0 % (0-5); Neutrophil # 12.43 X10^3/uL (2.7-7.7); Neutrophil % 81.7 % (47-70); Platelet Count 179 K/mm3 (150-450); Red Blood Count 5.17 M/mm3 (4.2-5.4); White Blood Count 15.2 K/mm3 (4.4-11.0)
[2023-10-11 02:32] LABS: Anion Gap 9 (5-15); BUN 19 mg/dL (7-18); Calcium,Total 9.8 mg/dL (8.5-10.1); Chloride 104 mmol/L (98-107); EST Glomerular Filtration Rate 56 mL/min (>60); Est Glom Filt Rate - Afr Amer 68 mL/min (>60); Glucose 162 mg/dL (74-106); Sodium Level 136 mmol/L (136-145); Troponin-I HS (w/2H Reflex) 22 pg/mL (3.0-54.0)
--- NOTE | 2023-10-11 02:49 | CT_ITS ---
We are attempting to reach an attending provider to discuss findings. An addendum with communication details will be sent when the communication is complete. EXAM: CT ANGIOGRAPHY CHEST WITHOUT AND WITH INTRAVENOUS CONTRAST CLINICAL INDICATION: dyspnea, elevated dimer TECHNIQUE: Helically acquired angiography images were obtained of the chest without and with intravenous contrast. CTDIvol = ( 19.77 ) mGy, DLP = ( 525.06 ) mGycm This CT exam was performed using one or more of the following dose reduction techniques: automated exposure control, adjustment of the mA and/or kV according to patient size, and/or use of iterative reconstruction technique. MIP reconstructed images were created and reviewed. CONTRAST: IV 100mL [id number] COMPARISON: No relevant prior studies available. FINDINGS: PULMONARY ARTERIES: Positive for bilateral PE. No saddle embolism. Dilated main pulmonary artery can be seen with pulmonary hypertension. On the right, there is involvement of the distal right main pulmonary artery, extending to involve proximal distal branches all lobes. On the left side is involvement of the lobar, segmental, and subsegmental branches. AORTA: Unremarkable. Normal in caliber. No evidence of dissection. GREAT VESSELS OF AORTIC ARCH: Unremarkable. Normal in caliber. No evidence of dissection. LUNGS AND PLEURAL SPACES: No mass. No pleural effusion or thickening. No pneumothorax. No pulmonary infarct. HEART: Unremarkable. Heart size is normal. No pericardial effusion. No significant coronary artery calcifications. MEDIASTINUM: Unremarkable. No mediastinal or hilar adenopathy. Esophagus is unremarkable. No hiatal hernia. THYROID: Unremarkable. No thyroid lesions. BONES/JOINTS: Unremarkable. No suspicious lytic or blastic abnormality. CT/CTA Chest W/WO Contrast IMPRESSION: Positive for PDE bilaterally with evidence of right heart strain. No associated pulmonary infarction. Electronically Signed: Parish Nogueira MD at 3:55 EDT ,
[2023-10-11 03:46] LABS: Partial Thromboplast Time 28.3 Seconds (24.1-36.2)
[2023-10-11] MEDS: Heparin Injection (Vial) 5,000 UNIT/ML VIAL 4000 UNIT IV (04:05)
[2023-10-11] MEDS: HEPARIN/D5w 25,000 UNITS 25,000 UNITS/250 ML IV.SOLN. 10 UNITS CONT INF (04:06)
[2023-10-11 04:09] LABS: Reflex Troponin-HS? (from REC) Y
--- NOTE | 2023-10-11 04:28 | HP.PCM.HOS_ITS ---
[facility] - General General Date of Admission: 10/11/23 Date of Service: 10/11/23 Chief Complaint: Shortness of breath HPI Narrative KATE MURRAY, is a 83 F who presents with shortness of breath. This is an 82-year-old female with a history of hypertension and hypothyroidism presents with a 1 week history of shortness of breath. Last night, patient was having chest pain with pain rating up into her left arm. At the behest of her she came into the hospital. Patient had an elevated D-dimer of 8.2. Patient had a CTA of her chest that showed bilateral PE with more clot burden on the right with right heart strain. Patient was started on heparin drip with a heparin bolus. Patient has never had any PE nor DVTs before. [facility] Medical History Macular degeneration Hemorrhoids Hypertension Thyroid disease Home Medications ?Medication ?Instructions ?Recorded ?Last Taken ?Type fluticasone propionate 50 1 spray intranasal DAILY 06/03/18 Unknown History mcg/actuation nasal spray,suspension (Flonase Allergy Relief) hydrochlorothiazide 12.5 mg tablet 12.5 mg PO DAILY 06/03/18 06/11/18 05:00 History levothyroxine 75 mcg tablet 75 mcg PO DAILY 10/11/23 Unknown History losartan 100 mg tablet 100 mg PO DAILY 10/11/23 Unknown History Allergy/AdvReac Type Severity Reaction Status Date / Time No Known Allergies Allergy Unverified 06/11/18 08:14 Family History (Updated 10/11/23 @ 04:[address] James Davidson DO) Other Heart disease Surgical History history orif left ankle History of hysterectomy Social History Smoking Status: Never smoker alcohol intake: current alcohol intake frequency: a few times a month substance use type: does not use ROS ROS Narrative No lower extremity edema. All review of systems were negative except as mentioned above in the history of present illness and the other review of systems. Vital Signs Vital Signs Vital Signs: 10/11/23 01:58 10/11/23 02:07 10/11/23 03:15 Temperature 36.6 C Temperature Source Oral Pulse Rate 97 Respiratory Rate 19 H Respiratory Effort Normal Blood Pressure 170/91 H Blood Pressure Mean 117 Pulse Ox 96 Oxygen Delivery Method Nasal Cannula Nasal Cannula Oxygen Flow Rate (L/min) 2 2 10/11/23 04:03 Temperature Temperature Source Pulse Rate 86 Respiratory Rate 18 Respiratory Effort Blood Pressure 137/82 H Blood Pressure Mean 100 Pulse Ox 96 Oxygen Delivery Method Nasal Cannula Oxygen Flow Rate (L/min) 2 Weight Weight: 89.7 kg Body Mass Index (BMI) 34.4 Physical Exam Narrative - Physical Exam General: Alert, Oriented x3, Cooperative. Patient is on oxygen. No respiratory distress. No conversational dyspnea. HEENT: Atraumatic, PERRLA, EOMI, Normocephalic Oral: Moist Mucosa, No Gingival or Mucosal Lesions/ Ulcerations Neck: Supple, No JVD, Negative Carotid Bruits Lungs: Clear to auscultation, Normal air movement Cardiovascular: Regular rate, Normal S1, Normal S2, No murmurs Abdomen: Bowel Sounds Present, Soft, Non Tender, Non-Distended, No Hepato- splenomegaly Extremities: No clubbing, No cyanosis, No edema, Capillary Refill Less than 3 Seconds. No calf tenderness. Skin: No rashes, No breakdown Musculoskeletal: No Tenderness to Palpation of Joints or Extremities Neurological: Moves all extremities spontaneously. No focal deficits. Psych/Mental Status: Normal Affect, Appropriate Results Lab / Micro Data Attestation: I reviewed the patient's lab results. 10/11/23 01:42 10/11/23 01:42 Labs: Laboratory Results - last 24 hr 10/11/23 01:42: WBC 15.2 H, RBC 5.17, Hgb 15.4 H, Hct 46.8, MCV 90.5, MCH 29.8, MCHC 32.9, RDW Std Deviation 43.0, RDW Coeff of Rosa Isela 13.0, Plt Count 179, MPV 10.9, Immature Gran % (Auto) 0.500, Neut % (Auto) 81.7 H, Lymph % (Auto) 12.4 L, [place] % (Auto) 4.9, Eos % (Auto) 0.2, Baso % (Auto) 0.3, Absolute Neuts (auto) 12.4 H, Absolute Lymphs (auto) 1.89, Nucleated RBC % 0, PT 13.0, INR 1.0, APTT 28.3, D-Dimer Quant (PE/DVT) 8.20 H*, Sodium 136, Potassium 4.0, Chloride 104, Carbon Dioxide 23.0, Anion Gap 9, BUN 19 H, Creatinine 1.00, Estim Creat Clear Calc 45.30, Est GFR (MDRD) Af Amer 68, Est GFR (MDRD) Non-Af 56 L, BUN/Creatinine Ratio 19.0, Glucose 162 H, Calcium 9.8, Troponin I High Sens 22 EKG Initial EKG: Attestation: I personally reviewed and interpreted this EKG as follows: Prior EKG tracings: available for review EKG Rhythm Intrepretation: Sinus Tachycardia (Prominent S components in lead I, prominence Q wave in lead III and T wave inversion in lead III.) Imaging Radiology Impression Chest CTA 10/11/23 02:49 IMPRESSION: Positive for PDE bilaterally with evidence of right heart strain. No associated pulmonary infarction. Electronically Signed: Parish Nogueira MD at 3:55 EDT [place] Location ID and State: [email or web address] / [place] Tel , Service support , ADDENDUM: 10/11/23 0403 IMPRESSION: Positive for PDE bilaterally with evidence of right heart strain. No associated pulmonary infarction. N.B. : The above Results were Read Back by Parish Nogueira MD to Gabo Cedillo MD, and understanding confirmed on 10/11/2023 03:56:59 (ET). Electronically Signed: Parish Nogueira MD at 3:55 EDT , ADDENDUM: 10/11/23 0406 IMPRESSION: Positive for PE bilaterally with evidence of right heart strain. No saddle embolism or pulmonary infarction. Dr. Cedillo was notified of the findings at 12:56 AM [place] time on 10/11/2023. Electronically Signed: Parish Nogueira MD at 3:59 EDT [place] Location ID and State: [email or web address] / [place] Tel , Service support , N.B. : The above Results were Read Back by Parish Nogueira MD to Gabo Cedillo MD, and understanding confirmed on 10/11/2023 03:56:59 (ET). Assessment & Plan Assessment/Plan (1) Pulmonary emboli: PLAN: Acute Patient has evidence of right heart strain on her CTA Patient received heparin bolus and is on a heparin drip currently. Will continue that. Check an echocardiogram Consult vascular surgery to see if extraction would be feasible. PLAN: Plan Chronic conditions * Hypertension: Continue with HCTZ and losartan with hold parameters. * Hypothyroidism: Continue levothyroxine. VTE prophylaxis not indicated as patient is going to be anticoagulated. Charges/Coding Visit Charges Inpatient E&M: 18482 Init Hosp L3
--- NOTE | 2023-10-11 04:44 | ECHOCS_ITS ---
Reason For Study: Pulmonary Embolism Procedure This was a 2D Doppler, Color Flow transthoracic echocardiogram. The study was technically difficult. Contrast injection was performed. Exam performed portable in patient room. Left Ventricle Normal LV size. D shaped septum in systole and diastole. The estimated ejection fraction is 65 %. Stage 1 diastolic dysfunction. Right Ventricle Moderately dilated right ventricle. Moderately severe global right ventricular systolic dysfunction. Wells's sign present. Atria Normal left atrium. The right atrium is mildly enlarged. Mitral Valve Mild focal mitral valve thickening. Trivial mitral valve insufficiency. Tricuspid Valve Normal tricuspid valve. Mild tricuspid valve insufficiency. Pulmonary artery systolic pressure is 65 mmHg. Aortic Valve Trisinus/trileaflet aortic valve. Mild (1+) aortic valve insufficiency. Pulmonic Valve Normal pulmonic valve. Trivial pulmonic valve insufficiency. Great Vessels Normal aortic root. Pericardium/Pleural No pericardial effusion. Medication Diluted definity 2ml given slow IV push to enhance endocardial definition. MMode/2D Measurements & Calculations LVIDd: 3.8 cm IVSd: 1.0 cm Ao root diam: 3.8 cm LVIDs: 2.5 cm LVPWd: 0.91 cm LA dimension: 3.0 cm RVDd: 4.2 cm FS: 33.2 % LAV(MOD-bp): 29.5 ml LVAd ap4: 22.4 cm2 SV(MOD-sp4): 35.7 ml LAV(MOD-bp) Indexed: 15.4 ml/m2 LVLd ap4: 7.7 cm LAV(MOD-sp2): 25.5 ml EDV(MOD-sp4): 56.6 ml LAV(MOD-sp4): 33.5 ml EDV(sp4-el): 55.6 ml LVAs ap4: 12.1 cm2 LVLs ap4: 6.0 cm ESV(MOD-sp4): 20.9 ml ESV(sp4-el): 20.6 ml EF(MOD-sp4): 63.1 % EF(sp4-el): 63.0 % SV(sp4-el): 35.0 ml LA A4 area: 13.5 cm2 RA A4 area: 18.1 cm2 TAPSE: 1.3 cm Time Measurements MV dec time: 0.25 sec Doppler Measurements & Calculations MV E max ming: 43.5 cm/sec Lat Peak E' Ming: 5.3 cm/sec Med Peak E' Ming: 6.5 cm/sec MV A max ming: 99.9 cm/sec E/E' lat: 8.1 E/E' med: 6.7 MV E/A: 0.44 MV V2 max: 105.3 cm/sec MV P1/2t max ming: 52.2 cm/sec Ao V2 max: 122.4 cm/sec MV max P.4 mmHg MV P1/2t: 87.9 msec Ao max P.0 mmHg MV V2 mean: 46.4 cm/sec Ao V2 mean: 88.2 cm/sec MV mean P.1 mmHg MV dec slope: 174.0 cm/sec2 Ao mean P.5 mmHg MV V2 VTI: 19.8 cm MVA(P1/2t): 2.5 cm2 Ao V2 VTI: 23.9 cm AV (velocity ratio): 0.78 AI max ming: 437.7 cm/sec LV V1 max: 99.1 cm/sec PA V2 max: 43.2 cm/sec AI max P.6 mmHg LV V1 max P.9 mmHg PA max PG (full): 0.15 mmHg LV V1 mean P.9 mmHg AI dec slope: 306.9 cm/sec2 LV V1 mean: 63.3 cm/sec AI P1/2t: 417.6 msec LV V1 VTI: 18.6 cm TR max ming: 378.5 cm/sec TR max P.3 mmHg ECHO/Echo Complete W/ Contrast Interpretation Summary The estimated ejection fraction is 65 %. Stage 1 diastolic dysfunction. D shaped septum in systole and diastole. Moderately dilated right ventricle. Moderately severe global right ventricular systolic dysfunction. The right atrium is mildly enlarged. Mild focal mitral valve thickening. Pulmonary artery systolic pressure is 65 mmHg. Mild (1+) aortic valve insufficiency. Contrast echo using Definity The study was technically difficult. Contrast inje ction was performed. Ordering Physician: Jopperi, James Performed By: Mihir Courtney RCS
[2023-10-11] MEDS: Levothyroxine 75 MCG Tablet PO (05:06)
[2023-10-11 05:50] LABS: Troponin-I HS 26 pg/mL (3.0-54.0)
--- NOTE | 2023-10-11 07:34 | VDLE_ITS ---
Reason For Study: PE RIGHT LEFT GSV is normal. GSV is normal. CFV is compressible, spontaneous, competent CFV is compressible, spontaneous, competent, and demonstrates pulsatile venous flow. and demonstrates pulsatile venous flow. FV is compressible, spontaneous, competent FV is compressible, spontaneous, competent and demonstrates pulsatile venous flow. and demonstrates pulsatile venous flow. POP V is compressible, spontaneous, competent POP V is compressible, spontaneous, competent and demonstrates pulsatile venous flow. and demonstrates pulsatile venous flow. T/P Trunk is compressible. T/P Trunk is compressible. PTV is compressible. PTV is compressible. RT PerV is compressible. LT PerV is compressible. Procedure Anechoic non vascularized area noted in Lt This is a venous duplex using B-mode, color Pop Fossa measuring approximately 3.12cm x flow and spectral Doppler. 0.91cm. Exam performed portable in patient room. The exam was diagnostic. A preliminary report was called and/or faxed to [facility]. VL/Venous Duplex US - Jules Extrem Interpretation Summary Deep veins of the bilateral lower extremities are patent and compressible segme ntally. There is no evidence of bilateral lower extremity deep vein thrombosis. The bilateral great saphenous veins appear patent and compressible segmentally. Pulsatile flow pattern bilateral. Anechoic non vascularized area noted in left popliteal fossa measuring approxim ately 3.12cm x 0.91cm. Ordering Physician: Milena Jim Referring Physician: Walt Aguila Performed By: Derrick Austin RVT
--- NOTE | 2023-10-11 07:34 | PCM.PN.HOSP ---
Reason for Visit Reason for Visit: Diagnoses Other pulmonary embolism without acute cor pulmonale (10/11/23) Subjective Subjective Patient is an 83-year-old female admitted with left breast and shoulder pain with radiation to the jaw. She was found to have D-dimer of 8.2 subsequent imaging studies demonstrated bilaterally with evidence of right heart strain. No saddle embolism or pulmonary infarction. Objective Data Objective Data Vital Signs: Vital Signs Temp Pulse Resp BP Pulse Ox O2 Del Method O2 Flow Rate 96.9 F L 89 18 146/81 H 96 Nasal Cannula 2 10/11/23 04:57 10/11/23 04:57 10/11/23 04:57 10/11/23 04:57 10/11/23 04:57 10/11/23 04:58 10/11/23 04:58 Oxygen Flow Rate (L/min) 2 Oxygen Delivery Method Nasal Cannula Weight: 85.7 kg Body Mass Index (BMI) 33.5 Intake & Output: Intake and Output for Last 24 Hours 10/09/23 10/10/23 10/11/23 23:59 23:59 23:59 Intake Total 100 / 100 Balance 100 / 100 Lab / Micro Data 10/11/23 01:42 10/11/23 01:42 Labs: Laboratory Results - last 24 hr 10/11/23 01:42: WBC 15.2 H, RBC 5.17, Hgb 15.4 H, Hct 46.8, MCV 90.5, MCH 29.8, MCHC 32.9, RDW Std Deviation 43.0, RDW Coeff of Rosa Isela 13.0, Plt Count 179, MPV 10.9, Immature Gran % (Auto) 0.500, Neut % (Auto) 81.7 H, Lymph % (Auto) 12.4 L, [place] % (Auto) 4.9, Eos % (Auto) 0.2, Baso % (Auto) 0.3, Absolute Neuts (auto) 12.4 H, Absolute Lymphs (auto) 1.89, Nucleated RBC % 0, PT 13.0, INR 1.0, APTT 28.3, D-Dimer Quant (PE/DVT) 8.20 H*, Sodium 136, Potassium 4.0, Chloride 104, Carbon Dioxide 23.0, Anion Gap 9, BUN 19 H, Creatinine 1.00, Estim Creat Clear Calc 45.30, Est GFR (MDRD) Af Amer 68, Est GFR (MDRD) Non-Af 56 L, BUN/Creatinine Ratio 19.0, Glucose 162 H, Calcium 9.8, Troponin I High Sens 22 10/11/23 05:26: Troponin I High Sens 26 Radiography Diagnostic Testing: Radiology Impression Chest CTA 10/11/23 02:49 IMPRESSION: Positive for PDE bilaterally with evidence of right heart strain. No associated pulmonary infarction. Electronically Signed: Parish Nogueira MD at 3:55 EDT , ADDENDUM: 10/11/23 0403 IMPRESSION: Positive for PDE bilaterally with evidence of right heart strain. No associated pulmonary infarction. N.B. : The above Results were Read Back by Parihs Nogueira MD to Gabo Cedillo MD, and understanding confirmed on 10/11/2023 03:56:59 (ET). Electronically Signed: Parish Nogueira MD at 3:55 EDT , ADDENDUM: 10/11/23 0406 IMPRESSION: Positive for PE bilaterally with evidence of right heart strain. No saddle embolism or pulmonary infarction. Dr. Cedillo was notified of the findings at 12:56 AM [place] time on 10/11/2023. Electronically Signed: Parish Nogueira MD at 3:59 EDT , N.B. : The above Results were Read Back by Parish Nogueira MD to Gabo Cedillo MD, and understanding confirmed on 10/11/2023 03:56:59 (ET). Physical Exam Narrative GENERAL: cooperative HEENT: Atraumatic; normocephalic EYES; Anicteric, Normal Conjunctiva NECK; supple, normal thyroid, RESPIRATORY: Diminished to auscultation CARDIOVASCULAR: Regular S1 S2, GI: soft, normoactive bowel sounds, : No Renal angle tenderness; EXTREMITIES: No edema, no clubbing, MUSCULOSKELETAL: no muscle wasting NEURO: Awake; no lateralizing signs. SKIN: No Rash PSYCH; Flat affect Assessment & Plan Assessment/Plan (1) Bilateral pulmonary embolism: PLAN: Plan Patient is an 83-year-old female admitted with left breast and shoulder pain with radiation to the jaw. She was found to have D-dimer of 8.2 subsequent imaging studies demonstrated bilaterally with evidence of right heart strain. No saddle embolism or pulmonary infarction. 1. Acute pulmonary embolism ? CTA of the chest was positive for Positive for PE bilaterally with evidence of right heart strain. No saddle embolism or pulmonary infarction. Patient admitted to monitored bed started on heparin subsequent evaluation with 2D echo ordered 2. Hypertension - Blood pressure controlled, home medications continued with dose adjustment as needed 3. Hypothyroidism - Patient is on levothyroxine home dose continued 4. Class I obesity with BMI of 33.5 ? Weight loss advised Advance planning; did discuss with the patient regarding advanced directives as well as CODE STATUS. Did explain the various scenarios involved ( FULL CODE, DNR CCA, DNR CCA with no intubation, and DNR CC and what each meant) patient elected to remain full code with CPR and intubation. Order was placed. Time spent on discussion 18 minutes. Charges/Coding Procedures Hospitalists Procedures: 63908 Advncd Care Plan 30 Min
[2023-10-11] MEDS: Fluticasone 0.05% 1 SPRAY NASAL.SRY NASAL (08:07)
[2023-10-11] MEDS: Losartan Potassium 100 MG Tablet PO (08:07)
[2023-10-11] MEDS: hydroCHLOROthiazide 12.5mg 12.5 MG PO (08:07)
[2023-10-11 08:10] LABS: Troponin-I HS 28 pg/mL (3.0-54.0)
[2023-10-11 08:17] LABS: BNP,B-Type NATRIURETIC PEPTIDE 362.4 pg/mL (0-100)
--- NOTE | 2023-10-11 09:05 | EX.PCM.CONCC ---
Assessment & Plan Assessment/Plan (1) Bilateral pulmonary embolism: PLAN: Plan RECOMMENDATIONS: 1. Continue supplemental oxygen, if needed, to maintain saturations at or above 90%. 2. Await results of echocardiogram. 3. Lower extremity Doppler study is pending. 4. Continue weight-based heparin infusion. 5. If the patient remains stable over the next 24 hours she can be transitioned to either Eliquis or Xarelto tomorrow. 6. Walking oximetry study prior to consideration for discharge home. 7. I do not see any overt indication for thrombectomy at the current time. IMPRESSIONS: 1. Bilateral pulmonary emboli The patient presented to the hospital with chest discomfort and shortness of breath in the setting of bilateral pulmonary emboli with right heart strain. Although BNP was mildly elevated, troponin was negative. The patient is otherwise clinically stable on minimal supplemental O2. I do suspect that her underlying PEs may be related to a baseline sedentary lifestyle. No other provoking factors were identified. Surface echocardiogram is currently pending. The patient also had lower extremity Dopplers completed, the results of which are pending. Given the patient's clinical stability, I do not see an overt indication for thrombectomy. Accordingly, I would recommend continuing a weight-based heparin infusion, with plans to transition the patient to either Eliquis or Xarelto tomorrow, depending on insurance coverage. 2. Obesity/hypertension/hypothyroidism Complicates care, management, recovery and prognosis. Continue home medications as indicated. This note was generated with [employer] dictation software. It may contain incorrect words, spelling, and punctuation that were not noted in checking the note before signing. HPI Consult Data Date of Consult: 10/11/23 HPI Narrative Reason for Consultation: Pulmonary embolism HPI Narrative: The patient is an 83-year-old female, with a history as outlined below, who presented to the emergency department on October 10 with reported chest discomfort of approximately 24 hours duration along with exertional dyspnea of approximately 5 days duration. The patient is a lifelong non-smoker, without any prior pulmonary diagnoses. She denied a history of venous thromboembolic disease. The patient denied any history of any clotting disorders or cancer. She denied any recent travel, but readily admitted that she lives a sedentary lifestyle. On presentation to the emergency department, the patient was documented to be afebrile and hemodynamically stable. Initial laboratory evaluation revealed a white blood cell count of 15,000. D-dimer was elevated at 8.2. Chemistry profile was unrevealing. Troponin was negative. BNP was elevated at 362. CTA chest was completed which demonstrated bilateral pulmonary emboli with evidence of right heart strain. The patient was subsequently placed on a weight-based heparin infusion and admitted to the progressive care unit for further management. At the time of my evaluation of the patient, she was being evaluated by surface echocardiogram and lower extremity Doppler studies. She does report overall improvement in her chest discomfort. [facility] Medical History Macular degeneration Hemorrhoids Hypertension Thyroid disease Home Medications ?Medication ?Instructions ?Recorded ?Last Taken ?Type fluticasone propionate 50 1 spray intranasal DAILY 06/03/18 Unknown History mcg/actuation nasal spray,suspension (Flonase Allergy Relief) hydrochlorothiazide 12.5 mg tablet 12.5 mg PO DAILY 06/03/18 06/11/18 05:00 History levothyroxine 75 mcg tablet 75 mcg PO DAILY 10/11/23 Unknown History losartan 100 mg tablet 100 mg PO DAILY 10/11/23 Unknown History Allergy/AdvReac Type Severity Reaction Status Date / Time No Known Allergies Allergy Unverified 06/11/18 08:14 Family History (Updated 10/11/23 @ 04:[address] James Davidson DO) Other Heart disease Surgical History history orif left ankle History of hysterectomy Social History Smoking Status: Never smoker alcohol intake: current alcohol intake frequency: a few times a month substance use type: does not use ROS ROS Narrative 10 systems were reviewed with pertinent positives as noted in the HPI above. Physical Exam Const alert and no apparent distress General Appearance: cooperative HEENT normocephalic and head/scalp atraumatic Eyes PERRL, EOMs intact bilaterally and conjunctivae normal Neck supple General: trachea midline Chest inspection of chest normal Resp normal respiratory effort Auscultation: Negative for rales, rhonchi or wheezes Cardio regular rate and regular rhythm GI normal to inspection, nondistended, normoactive bowel sounds Extremity no clubbing, cyanosis or edema Skin no rashes or lesions noted Neuro CN's II-XII intact bilaterally, moves all extremities and no focal motor deficits Psych cooperative and affect normal Lab / Micro Data 10/11/23 01:42 10/11/23 01:42 Labs: Laboratory Results - last 24 hr 10/11/23 01:42: WBC 15.2 H, RBC 5.17, Hgb 15.4 H, Hct 46.8, MCV 90.5, MCH 29.8, MCHC 32.9, RDW Std Deviation 43.0, RDW Coeff of Rosa Isela 13.0, Plt Count 179, MPV 10.9, Immature Gran % (Auto) 0.500, Neut % (Auto) 81.7 H, Lymph % (Auto) 12.4 L, [place] % (Auto) 4.9, Eos % (Auto) 0.2, Baso % (Auto) 0.3, Absolute Neuts (auto) 12.4 H, Absolute Lymphs (auto) 1.89, Nucleated RBC % 0, PT 13.0, INR 1.0, APTT 28.3, D-Dimer Quant (PE/DVT) 8.20 H*, Sodium 136, Potassium 4.0, Chloride 104, Carbon Dioxide 23.0, Anion Gap 9, BUN 19 H, Creatinine 1.00, Estim Creat Clear Calc 45.30, Est GFR (MDRD) Af Amer 68, Est GFR (MDRD) Non-Af 56 L, BUN/Creatinine Ratio 19.0, Glucose 162 H, Calcium 9.8, Troponin I High Sens 22, B-Natriuretic Peptide 362.4 H 10/11/23 05:26: Troponin I High Sens 26 10/11/23 07:27: Troponin I High Sens 28 Imaging Radiology Impression Chest CTA 10/11/23 02:49 IMPRESSION: Positive for PDE bilaterally with evidence of right heart strain. No associated pulmonary infarction. Electronically Signed: Parish Nogueira MD at 3:55 EDT , ADDENDUM: 10/11/23 0403 IMPRESSION: Positive for PDE bilaterally with evidence of right heart strain. No associated pulmonary infarction. N.B. : The above Results were Read Back by Parish Nogueira MD to Gabo Cedillo MD, and understanding confirmed on 10/11/2023 03:56:59 (ET). Electronically Signed: Parish Nogueira MD at 3:55 EDT , ADDENDUM: 10/11/23 0406 IMPRESSION: Positive for PE bilaterally with evidence of right heart strain. No saddle embolism or pulmonary infarction. Dr. Cedillo was notified of the findings at 12:56 AM [place] time on 10/11/2023. Electronically Signed: Parish Nogueira MD at 3:59 EDT , N.B. : The above Results were Read Back by Parish Nogueira MD to Gabo Cedillo MD, and understanding confirmed on 10/11/2023 03:56:59 (ET). Charges/Coding Visit Charges Inpatient E&M: 47959 Init Hosp L3
--- NOTE | 2023-10-11 09:34 | EX.PCM.CON.S ---
Assessment & Plan Assessment/Plan (1) Bilateral pulmonary embolism: PLAN: She has had improvement in her symptoms to this point and is otherwise clinically stable. Echo is still pending. As long as she continues to remain stable and improve, no plan for thrombectomy. Will continue with heparin drip with transition to DOAC tomorrow if she remains stable as per pulmonary recommendation. Patient and her family were comfortable with this plan. HPI Consult Data Date of Consult: 10/11/23 HPI Narrative HPI Narrative: KATE MURRAY, is a 83 F who presented to the [facility] ER yesterday evening with exertional dyspnea and CP. She reports she had about a 1 week history of exertional dyspnea. Yesterday evening she developed some sharp L shoulder pain and L chest pressure worse with deep breaths. CTA revealed bilateral PE with evidence of heart strain. She was admitted on heparin drip and we are consulted to assess if thrombectomy is indicated. Today, she is saturating well at rest on 2L O2 via NC. She is hemodynamically stable. Serial troponins were negative. BNP 362.4. Lactic acid 2.6. Lower extremity venous duplex preliminary report revealed no DVT bilaterally but noted pulsatile flow. Echocardiogram results are pending. Pulmonary Dr. Jha saw her in consultation as well. She reports she still has chest pressure but it is improved; she reports some pressure is present when sitting in the bed but it had gone away when she was sitting in the bedside chair so somewhat positional. She does not have SOB at rest. She has not ambulated much yet. She denies history of prior VTE. She denies any recent travel, injury/surgery, or other significant decrease in activity. She reports she has been up to date on all age-appropriate cancer screenings. She denies any new fatigue, weight loss, blood in her stool or urine, dysphagia, night sweats, prior SOB/cough. She does admit to being rather sedentary in general. [facility] Medical History Macular degeneration Hemorrhoids Hypertension Thyroid disease Home Medications ?Medication ?Instructions ?Recorded ?Last Taken ?Type fluticasone propionate 50 1 spray intranasal DAILY 06/03/18 Unknown History mcg/actuation nasal spray,suspension (Flonase Allergy Relief) hydrochlorothiazide 12.5 mg tablet 12.5 mg PO DAILY 06/03/18 06/11/18 05:00 History levothyroxine 75 mcg tablet 75 mcg PO DAILY 10/11/23 Unknown History losartan 100 mg tablet 100 mg PO DAILY 10/11/23 Unknown History Allergy/AdvReac Type Severity Reaction Status Date / Time No Known Allergies Allergy Unverified 06/11/18 08:14 Family History (Updated 10/11/23 @ 04:[address] James Davidson DO) Other Heart disease Surgical History history orif left ankle History of hysterectomy Social History Smoking Status: Never smoker alcohol intake: current alcohol intake frequency: a few times a month substance use type: does not use Physical Exam Const alert and oriented x3 General Appearance: cooperative and comfortable HEENT normocephalic, head/scalp atraumatic, hearing grossly normal bilaterally, external ears normal and external nose normal Head and Scalp: normal to inspection and normocephalic Eyes EOMs intact bilaterally General Eye: normal appearance of both eyes Neck General: normal visual inspection and trachea midline Resp normal respiratory effort, no retractions and no use of accessory muscles Effort and Inspection: able to speak in complete sentences; Negative for labored, grunting or stridor Cardio regular rate and regular rhythm Extremity normal to inspection and no clubbing, cyanosis or edema Skin no rashes or lesions noted Trauma: no lacerations or abrasions Neuro oriented x3, CN's II-XII intact bilaterally, moves all extremities, no focal motor deficits and no sensory deficits noted Speech: speech normal Psych mental status grossly normal Appearance: grossly normal Attitude: calm and engaged Activity / Motor Behavior: appropriate eye contact Speech: normal speech Mood & Affect: euthymic mood Judgement: judgement good Lab / Micro Data 10/11/23 01:42 10/11/23 01:42 Labs: Laboratory Results - last 24 hr 10/11/23 01:42: WBC 15.2 H, RBC 5.17, Hgb 15.4 H, Hct 46.8, MCV 90.5, MCH 29.8, MCHC 32.9, RDW Std Deviation 43.0, RDW Coeff of Rosa Isela 13.0, Plt Count 179, MPV 10.9, Immature Gran % (Auto) 0.500, Neut % (Auto) 81.7 H, Lymph % (Auto) 12.4 L, [place] % (Auto) 4.9, Eos % (Auto) 0.2, Baso % (Auto) 0.3, Absolute Neuts (auto) 12.4 H, Absolute Lymphs (auto) 1.89, Nucleated RBC % 0, PT 13.0, INR 1.0, APTT 28.3, D-Dimer Quant (PE/DVT) 8.20 H*, Sodium 136, Potassium 4.0, Chloride 104, Carbon Dioxide 23.0, Anion Gap 9, BUN 19 H, Creatinine 1.00, Estim Creat Clear Calc 45.30, Est GFR (MDRD) Af Amer 68, Est GFR (MDRD) Non-Af 56 L, BUN/Creatinine Ratio 19.0, Glucose 162 H, Calcium 9.8, Troponin I High Sens 22, B-Natriuretic Peptide 362.4 H 10/11/23 05:26: Troponin I High Sens 26 10/11/23 07:27: Troponin I High Sens 28 Imaging Radiology Impression Chest CTA 10/11/23 02:49 IMPRESSION: Positive for PDE bilaterally with evidence of right heart strain. No associated pulmonary infarction. Electronically Signed: Parish Nogueira MD at 3:55 EDT , ADDENDUM: 10/11/23 0403 IMPRESSION: Positive for PDE bilaterally with evidence of right heart strain. No associated pulmonary infarction. N.B. : The above Results were Read Back by Parish Nogueira MD to Gabo Cedillo MD, and understanding confirmed on 10/11/2023 03:56:59 (ET). Electronically Signed: Parish Nogueira MD at 3:55 EDT , ADDENDUM: 10/11/23 0406 IMPRESSION: Positive for PE bilaterally with evidence of right heart strain. No saddle embolism or pulmonary infarction. Dr. Cedillo was notified of the findings at 12:[address] [place] time on 10/11/2023. Electronically Signed: Parish Nogueira MD at 3:59 EDT , N.B. : The above Results were Read Back by Parish Nogueira MD to Gabo Cedillo MD, and understanding confirmed on 10/11/2023 03:56:59 (ET). Charges/Coding Visit Charges Office Visits / Consults: [id number] IP Consult L2
[2023-10-11 10:49] LABS: Lactic Acid 2.6 mmol/L (0.4-1.9)
[2023-10-11 12:26] LABS: Troponin-I HS 26 pg/mL (3.0-54.0)
--- NOTE | 2023-10-11 12:29 | CASEMGMT ---
SALVADOR GERBER Assessment Face to Face with patient for initial transition planning/care coordination assessment. SALVADOR GERBER introduced self and role at [facility], pt voices understanding. Pt is A&Ox4 and is resting comfortably in the chair and is calm. Pt and DIL at bedside. Care providers, pharmacy, and demographics verified. Admitting dx: PE PCP: Walt Aguila Specialists: [employer] in [place]. Dr. Tapia (Pulmonary) [facility]erred [facility]acy: [facility] Insurance: [place] A/B, [employer] Prescription Benefit: Yes LNOK: Jaya Mcdonald (H), Ai Ureña (DIL) Living Arrangements: Pt lives with her in a single story home with a basement and a FFSU. There are two step to enter ADLs/IADLs: Ind Transportation: , family. Denies concerns DME: CPAP @ HS with no additional oxygen. Grab bars. Denies further needs at this time. However, the pt may qualify for additional oxygen at time of DC. A verbal list of local in network DME companies provided to the pt at this time. Pt prefers [facility] HHC/SNF: Denies history or needs Pt?s goal: Home Plan: Home with family support and potential oxygen. Follow for new Blood thinner Rx. Pt denies the need for HHC, OP Tx, and SNF. Pt states that her family and neighbors are able to provide the pt with enough support at home. There currently is no therapy ordered on the pt. Pt denies further questions or concerns. Report given to [employer] CM. Parvin Pedraza RN, CM
[2023-10-11 14:11] LABS: Reflex Lactate? Y
[2023-10-11 15:32] LABS: Lactic Acid 3.7 mmol/L (0.4-1.9)
[2023-10-11] MEDS: Acetaminophen 325 MG Tablet 650 MG PO (16:07)
[2023-10-11 18:34] LABS: Partial Thromboplast Time 49.2 Seconds (24.1-36.2)
[2023-10-11] MEDS: oxyCODONE 5 MG Tablet PO (19:36)
[2023-10-12] VITALS (10 sets, daily range): BP systolic 104–140; BP diastolic 59–63; PULSE 70–85; RESP 16–18; TEMP 36.4–37.1; O2SAT 93–98
[2023-10-12 01:19] LABS: Partial Thromboplast Time 65.6 Seconds (24.1-36.2)
[2023-10-12] MEDS: Levothyroxine 75 MCG Tablet PO (05:09)
--- NOTE | 2023-10-12 05:13 | EKG12_ITS ---
Test Reason : TACHYCARDIA Blood Pressure : / mmHG Vent. Rate : 070 BPM Atrial Rate : 070 BPM P-R Int : 166 ms QRS Dur : 088 ms QT Int : 400 ms P-R-T Axes : 045 038 -09 degrees QTc Int : 432 ms Sinus rhythm with Premature atrial complexes NS [facility] CHANGES Abnormal ECG No previous ECGs available Reconfirmed by Romario Jean-Baptiste ([id number]), editorial director SAURABH WEN ([id number]) on 10/16/2023 9:18:28 AM Referred By: [facility] Confirmed By:Romario Jean-Baptiste
[2023-10-12 07:08] LABS: Absolute Lymphocyte Count 1.69 X10^3/uL (0.83-4.51); Absolute Neutrophil Count 7.2 X10^3/uL (2.0-7.7); Basophil# 0.02 X10^3/uL; Basophil% 0.2 % (0-1); Eosinophil# 0.06 X10^3/uL; Eosinophils% 0.6 % (0-5); Hematocrit 41.3 % (37-47); Hemoglobin 13.6 g/dL (12.0-15.0); Lymphocyte # 1.69 X10^3/ul (0.83-4.51); Lymphocyte % 17.4 % (19-41); Mean Corp Hgb Conc 32.9 g/dL (32-36); Mean Corpuscular Hgb 30.2 pg (27.0-32.0); Mean Corpuscular Volume 91.6 fL (81-99); Mean Platelet Vol. 10.8 fl (6.2-12.0); Monocyte# 0.74 X10^3/uL; Monocyte% 7.6 % (0-10); NRBC Flagged by Analyzer 0 % (0-5); Neutrophil # 7.16 X10^3/uL (2.7-7.7); Neutrophil % 73.9 % (47-70); Platelet Count 150 K/mm3 (150-450); RBC Distribution Width CV 13.2 % (11.6-14.6); RBC Distribution Width SD 44.8 fl (35.1-43.9); Red Blood Count 4.51 M/mm3 (4.2-5.4); White Blood Count 9.7 K/mm3 (4.4-11.0)
--- NOTE | 2023-10-12 07:13 | PN.HOSP_ITS ---
Reason for Visit Reason for Visit: Diagnoses Other pulmonary embolism without acute cor pulmonale (10/11/23) Subjective Subjective Patient seen complains of chest discomfort. Patient however remains hemodynamically stable. Case was discussed with vascular surgery today prior no plans for thrombectomy unless patient becomes unstable. Objective Data Objective Data Vital Signs: Vital Signs Temp Pulse Resp BP Pulse Ox O2 Del Method O2 Flow Rate 97.5 F L 70 16 104/61 98 Nasal Cannula 3 10/12/23 03:20 10/12/23 03:20 10/12/23 03:20 10/12/23 03:20 10/12/23 03:20 10/12/23 04:05 10/12/23 04:05 Oxygen Flow Rate (L/min) 3 Oxygen Delivery Method Nasal Cannula Weight: 85.7 kg Body Mass Index (BMI) 33.5 Intake & Output: Intake and Output for Last 24 Hours 10/10/23 10/11/23 10/12/23 23:59 23:59 23:59 Intake Total 923.13 / 1323.13 554 / 554 Balance 923.13 / 1323.13 554 / 554 Lab / Micro Data 10/12/23 06:45 10/12/23 06:45 Labs: Laboratory Results - last 24 hr 10/11/23 01:42: B-Natriuretic Peptide 362.4 H 10/11/23 07:27: Troponin I High Sens 28 10/11/23 10:04: APTT 102.0 H*, Lactic Acid 2.6 H* 10/11/23 11:40: Troponin I High Sens 26 10/11/23 14:30: Lactic Acid 3.7 H* 10/11/23 18:00: APTT 49.2 H 10/12/23 00:40: APTT 65.6 H 10/12/23 06:45: WBC 9.7, RBC 4.51, Hgb 13.6, Hct 41.3, MCV 91.6, MCH 30.2, MCHC 32.9, RDW Std Deviation 44.8 H, RDW Coeff of Rosa Isela 13.2, Plt Count 150, MPV 10.8, Immature Gran % (Auto) 0.300, Neut % (Auto) 73.9 H, Lymph % (Auto) 17.4 L, [place] % (Auto) 7.6, Eos % (Auto) 0.6, Baso % (Auto) 0.2, Absolute Neuts (auto) 7.2, Absolute Lymphs (auto) 1.69, Nucleated RBC % 0 Radiography Diagnostic Testing: Radiology Impression Echocardiogram 10/11/23 04:44 Interpretation Summary The estimated ejection fraction is 65 %. Stage 1 diastolic dysfunction. D shaped septum in systole and diastole. Moderately dilated right ventricle. Moderately severe global right ventricular systolic dysfunction. The right atrium is mildly enlarged. Mild focal mitral valve thickening. Pulmonary artery systolic pressure is 65 mmHg. Mild (1+) aortic valve insufficiency. Contrast echo using Definity The study was technically difficult. Contrast injection was performed. Ordering Physician: James aDvidson Performed By: Mihir Courtney RCS Physical Exam Narrative GENERAL: cooperative HEENT: Atraumatic; normocephalic EYES; Anicteric, Normal Conjunctiva NECK; supple, normal thyroid, RESPIRATORY: Diminished to auscultation CARDIOVASCULAR: Regular S1 S2, GI: soft, normoactive bowel sounds, : No Renal angle tenderness; EXTREMITIES: No edema, no clubbing, MUSCULOSKELETAL: no muscle wasting NEURO: Awake; no lateralizing signs. SKIN: No Rash PSYCH; Flat affect Assessment & Plan Assessment/Plan (1) Bilateral pulmonary embolism: PLAN: Plan Patient is an 83-year-old female admitted with left breast and shoulder pain with radiation to the jaw. She was found to have D-dimer of 8.2 subsequent imaging studies demonstrated bilaterally with evidence of right heart strain. No saddle embolism or pulmonary infarction. 1. Acute pulmonary embolism ? CTA of the chest was positive for Positive for PE bilaterally with evidence of right heart strain. No saddle embolism or pulmonary infarction. Patient admitted to monitored bed started on heparin subsequent evaluation with 2D echo ordered ? 10/12/2023; Patient seen complains of chest discomfort. Patient however remains hemodynamically stable. Case was discussed with vascular surgery today prior no plans for thrombectomy unless patient becomes unstaBLE ?Echo obtained the day prior did show The estimated ejection fraction is 65 %. Stage 1 diastolic dysfunction. D shaped septum in systole and diastole. Moderately dilated right ventricle. Moderately severe global right ventricular systolic dysfunction. The right atrium is mildly enlarged. Mild focal mitral valve thickening. Pulmonary artery systolic pressure is 65 mmHg. Mild (1+) aortic valve insufficiency.. Patient patient will remain on heparin with plans to transition to apixaban starting 10/13/2023 if patient continues to remain stable 2. Hypertension - Blood pressure controlled, home medications continued with dose adjustment as needed 3. Hypothyroidism - Patient is on levothyroxine home dose continued 4. Class I obesity with BMI of 33.5 ? Weight loss advised 5. Lactic acidosis ? Present on admission to secondary to hypoxia no evidence of infection time spent in the patient's overall evaluation,decision-making process, review of diagnostic data, adjustment of management, discussion with other providers, nursing nursing and ancillary staff involved in patient's care documentation, 50 Minutes Charges/Coding Visit Charges Inpatient E&M: 82706 [facility] L3
[2023-10-12 07:30] LABS: Anion Gap 6 (5-15); BUN 22 mg/dL (7-18); BUN/Creat Ratio 24.1 RATIO (10-20); Calcium,Total 8.9 mg/dL (8.5-10.1); Chloride 100 mmol/L (98-107); Creatinine, Serum 0.91 mg/dL (0.55-1.02); EST Glomerular Filtration Rate 62 mL/min (>60); Est Glom Filt Rate - Afr Amer 75 mL/min (>60); Glucose 135 mg/dL (74-106); Magnesium 1.9 mg/dL (1.6-2.6); Phosphorus 4.2 mg/dL (2.5-4.9); Potassium 4.1 mmol/L (3.5-5.1); Sodium Level 133 mmol/L (136-145)
[2023-10-12] MEDS: Fluticasone 0.05% 1 SPRAY NASAL.SRY NASAL (09:01)
[2023-10-12] MEDS: hydroCHLOROthiazide 12.5mg 12.5 MG PO (09:01)
[2023-10-12] MEDS: Losartan Potassium 100 MG Tablet PO (09:01)
[2023-10-12] MEDS: Acetaminophen 325 MG Tablet 650 MG PO ×3 (09:12→21:05)
[2023-10-12] MEDS: oxyCODONE 5 MG Tablet PO ×2 (09:12)
[2023-10-12] MEDS: HEPARIN/D5w 25,000 UNITS 25,000 UNITS/250 ML IV.SOLN. 9 UNITS CONT INF (09:13)
[2023-10-12] MEDS: 0.9% Saline Lock 10 ML Syringe IV (09:16)
[2023-10-12 10:06] LABS: Partial Thromboplast Time 66.4 Seconds (24.1-36.2)
--- NOTE | 2023-10-12 17:49 | PCM.PN.SRG ---
Subjective Subjective I saw patient this afternoon resting comfortably up in the chair. Her was at bedside. She reports she had chest pressure and shoulder pain this morning but it improved with tylenol/oxycodone and has remained improved throughout the rest of the day. Overall, the chest pressure is improved compared to yesterday. Nursing reports that she was actually saturating well 94-95% on room air earlier today but felt SOB so they restarted her on 2L NC which she is on at present. She denies feeling SOB at rest and with ambulation to the bathroom; however, she has not ambulated farther than the bathroom. Objective Data Objective Data Vital Signs: Vital Signs Temp Pulse Resp BP Pulse Ox O2 Del Method O2 Flow Rate 98.2 F 70 18 111/61 96 Room Air 2 10/12/23 16:02 10/12/23 16:02 10/12/23 16:02 10/12/23 16:02 10/12/23 16:03 10/12/23 16:03 10/12/23 16:02 Oxygen Flow Rate (L/min) 2 Oxygen Delivery Method Room Air Weight: 188 lb 14.978 oz Body Mass Index (BMI) 33.5 Intake & Output: Intake and Output for Last 24 Hours 10/10/23 10/11/23 10/12/23 23:59 23:59 23:59 Intake Total 923.13 / 1323.13 1126.87 / 1126.87 Balance 923.13 / 1323.13 1126.87 / 1126.87 Lab / Micro Data 10/12/23 06:45 10/12/23 06:45 Labs: Laboratory Results - last 24 hr 10/11/23 18:00: APTT 49.2 H 10/12/23 00:40: APTT 65.6 H 10/12/23 06:45: WBC 9.7, RBC 4.51, Hgb 13.6, Hct 41.3, MCV 91.6, MCH 30.2, MCHC 32.9, RDW Std Deviation 44.8 H, RDW Coeff of Rosa Isela 13.2, Plt Count 150, MPV 10.8, Immature Gran % (Auto) 0.300, Neut % (Auto) 73.9 H, Lymph % (Auto) 17.4 L, [place] % (Auto) 7.6, Eos % (Auto) 0.6, Baso % (Auto) 0.2, Absolute Neuts (auto) 7.2, Absolute Lymphs (auto) 1.69, Nucleated RBC % 0, APTT 66.4 H, Sodium 133 L, Potassium 4.1, Chloride 100, Carbon Dioxide 27.0, Anion Gap 6, BUN 22 H, Creatinine 0.91, Estim Creat Clear Calc 48.60, Est GFR (MDRD) Af Amer 75, Est GFR (MDRD) Non-Af 62, BUN/Creatinine Ratio 24.1 H, Glucose 135 H, Calcium 8.9, Phosphorus 4.2, Magnesium 1.9 Physical Exam Const alert and oriented x3 General Appearance: cooperative and comfortable HEENT normocephalic, head/scalp atraumatic, hearing grossly normal bilaterally, external ears normal and external nose normal Head and Scalp: normal to inspection and normocephalic Eyes EOMs intact bilaterally General Eye: normal appearance of both eyes Neck General: normal visual inspection and trachea midline Resp normal respiratory effort, no retractions and no use of accessory muscles Effort and Inspection: able to speak in complete sentences; Negative for labored, grunting or stridor Cardio regular rate and regular rhythm Extremity normal to inspection and no clubbing, cyanosis or edema Skin no rashes or lesions noted Trauma: no lacerations or abrasions Neuro oriented x3, CN's II-XII intact bilaterally, moves all extremities, no focal motor deficits and no sensory deficits noted Speech: speech normal Psych mental status grossly normal Appearance: grossly normal Attitude: calm and engaged Activity / Motor Behavior: appropriate eye contact Speech: normal speech Mood & Affect: euthymic mood Judgement: judgement good Assessment & Plan Assessment/Plan (1) Bilateral pulmonary embolism: PLAN: Her oxygen saturation has been improved today compared to yesterday, she remains hemodynamically stable, and overall reports her symptoms are improving. She is tolerating heparin drip without any adverse effects. Plan is for continued heparin today and possibly transition to DOAC tomorrow. Will continue to follow. Charges/Coding Visit Charges Inpatient E&M: 93828 Subs Hosp L2
--- NOTE | 2023-10-12 18:41 | PN.CC_ITS ---
Objective Data Objective Data Vital Signs: Vital Signs Last response 3 Temperature 36.8 C 10/12/23 16:02 Temperature Source Oral 10/12/23 16:02 Pulse Rate 70 10/12/23 16:02 Pulse Strength Weak (1+) 10/12/23 09:40 Respiratory Rate 18 10/12/23 16:02 Respiratory Effort Normal, Non-Labored, Short of Breath 10/12/23 08:55 Respiratory Depth Normal 10/12/23 08:55 Respiratory Pattern Normal 10/12/23 08:55 Blood Pressure 111/61 10/12/23 16:02 Blood Pressure Mean 77 10/12/23 16:02 Blood Pressure Source Monitor 10/12/23 16:02 Blood Pressure Position Sitting 10/12/23 16:02 Blood Pressure Location Right Arm 10/12/23 16:02 Pulse Ox 96 10/12/23 16:03 Oxygen Delivery Method Room Air 10/12/23 16:03 Oxygen Flow Rate (L/min) 2 10/12/23 16:02 I&O: I&O Last 24 Hours 3 10/11/23 10/12/23 10/12/23 23:59 11:59 23:59 Intake Total 754.8 / 1323.13 626.87 / 1126.87 500 / 1126.87 Balance 754.8 / 1323.13 626.87 / 1126.87 500 / 1126.87 I&O: Total Stay 3 10/11/23 01:57 thru 10/12/23 12:00 Intake Total 2050.00 Balance 2050.00 Current Meds Ordered / Administered: Current meds ordered / Administered 3 Generic Name Dose Route Start Last Admin Trade Name Freq PRN Reason Stop Dose Admin Acetaminophen 650 mg 10/11/23 04:44 10/12/23 09:12 Acetaminophen 325 Mg Tablet PO 650 mg Q6H PRN PRN Administration Pain 1-10 Or Fever >100.7 Fluticasone Propionate 1 spray 10/11/23 10:00 10/12/23 09:01 Fluticasone 0.05% 1 [place] Nasal.Sry NASAL 1 spray DAILY LISSA Administration Heparin Sodium (Porcine) 0 unit 10/11/23 03:40 Heparin Injection (Vial) 5,000 Unit/Ml Vial IV UD PRN dose adjustment Protocol Hydrochlorothiazide 12.5 mg 10/11/23 10:00 10/12/23 09:01 Hydrochlorothiazide 12.5mg PO 12.5 mg DAILY LISSA Administration Protocol Heparin Sodium/Dextrose 25,000 units in 250 mls @ 10 mls/hr 10/11/23 03:30 10/12/23 09:13 CONT INF 900 units/hr .Q25H LISSA 9 mls/hr Administration Protocol As Directed Sodium Chloride 250 mls @ 15 mls/hr 10/11/23 04:48 IV .[id number] PRN Saline Flush Sodium Chloride 250 mls @ 15 mls/hr 10/11/23 04:48 IV .[id number] PRN Additional IVPB Infusion Levothyroxine Sodium 75 mcg 10/11/23 06:00 10/12/23 05:09 Levothyroxine 75 Mcg Tablet PO 75 mcg 0600 LISSA Administration Losartan Potassium 100 mg 10/11/23 10:00 10/12/23 09:01 Losartan Potassium 100 Mg Tablet PO 100 mg DAILY LISSA Administration Protocol Ondansetron HCl 4 mg 10/11/23 04:44 Ondansetron 4 Mg/2 Ml Vial IV Q8H PRN PRN NAUSEA/VOMITING Oxycodone HCl 2.5 - 5 mg 10/11/23 04:44 10/12/23 09:12 Oxycodone 5 Mg Tablet PO 5 mg Q4H PRN PRN Administration Pain Score 4-10 Sodium Chloride 10 - 40 ml 10/11/23 04:48 10/12/23 09:16 0.9% Saline Lock 10 Ml Syringe IV 10 ml UD PRN Administration SALINE FLUSH Lab / Micro Data 10/12/23 06:45 10/12/23 06:45 Labs: Laboratory Results - last 24 hr 10/12/23 00:40: APTT 65.6 H 10/12/23 06:45: WBC 9.7, RBC 4.51, Hgb 13.6, Hct 41.3, MCV 91.6, MCH 30.2, MCHC 32.9, RDW Std Deviation 44.8 H, RDW Coeff of Rosa Isela 13.2, Plt Count 150, MPV 10.8, Immature Gran % (Auto) 0.300, Neut % (Auto) 73.9 H, Lymph % (Auto) 17.4 L, [place] % (Auto) 7.6, Eos % (Auto) 0.6, Baso % (Auto) 0.2, Absolute Neuts (auto) 7.2, Absolute Lymphs (auto) 1.69, Nucleated RBC % 0, APTT 66.4 H, Sodium 133 L, Potassium 4.1, Chloride 100, Carbon Dioxide 27.0, Anion Gap 6, BUN 22 H, Creatinine 0.91, Estim Creat Clear Calc 48.60, Est GFR (MDRD) Af Amer 75, Est GFR (MDRD) Non-Af 62, BUN/Creatinine Ratio 24.1 H, Glucose 135 H, Calcium 8.9, Phosphorus 4.2, Magnesium 1.9 Assessment and Plan . Assessment and plan: Patient seen and examined Chart and data reviewed Elderly woman admitted w/ extensive acute VTED. No obvious precipitating event. HD stable. Modest O2 requirement. CTA reveals extensive bilateral PTED w/ enlarged RV. TTE reveals significant PAH as well as dilated RV w/ reduced RVSF. She is in NAD. VSS. Ambulating in room w/o problems today. IV UFH infusing. EXAM GEN NAD HEENT o/p clear NECK modest JVD COR RRR CHEST CTA ABD soft EXT no edema [place] NF A/P 1. Extensive PTED w/ RV dysfunction - receiving IV UFH BNP/troponin modestly elevated Significant TTE high-risk findings, including PAH and RV dysfunction She has extensive clot burden on CT as well Treatment recommendations in this patient subset are somewhat controversial - relatively high risk for decompensation w/ standard A/C - many would advocate for treatment to reduce clot burden relatively acutely Current treatment plan/opinions noted Continue IV UFH Monitor closely for now The entirety of this encounter was done via Telemedicine
[2023-10-13] VITALS (7 sets, daily range): BP systolic 120–144; BP diastolic 57–78; PULSE 74–147; RESP 18; TEMP 36.6–36.8; O2SAT 93–96
[2023-10-13] MEDS: Levothyroxine 75 MCG Tablet PO (05:40)
[2023-10-13 06:05] LABS: Absolute Lymphocyte Count 2.13 X10^3/uL (0.83-4.51); Basophil# 0.02 X10^3/uL; Basophil% 0.2 % (0-1); Eosinophil# 0.21 X10^3/uL; Eosinophils% 2.6 % (0-5); Hemoglobin 12.8 g/dL (12.0-15.0); Lymphocyte # 2.13 X10^3/ul (0.83-4.51); Lymphocyte % 26.4 % (19-41); Mean Corp Hgb Conc 33.7 g/dL (32-36); Mean Platelet Vol. 10.5 fl (6.2-12.0); Monocyte# 0.67 X10^3/uL; Monocyte% 8.3 % (0-10); NRBC Flagged by Analyzer 0 % (0-5); Neutrophil # 5.01 X10^3/uL (2.7-7.7); Platelet Count 156 K/mm3 (150-450); RBC Distribution Width SD 42.5 fl (35.1-43.9); Red Blood Count 4.27 M/mm3 (4.2-5.4); White Blood Count 8.1 K/mm3 (4.4-11.0)
[2023-10-13 06:25] LABS: Partial Thromboplast Time 62.7 Seconds (24.1-36.2)
[2023-10-13 06:42] LABS: Anion Gap 7 (5-15); BUN 23 mg/dL (7-18); BUN/Creat Ratio 31.9 RATIO (10-20); Calcium,Total 8.4 mg/dL (8.5-10.1); Chloride 98 mmol/L (98-107); Creatinine, Serum 0.72 mg/dL (0.55-1.02); EST Glomerular Filtration Rate 82 mL/min (>60); Est Glom Filt Rate - Afr Amer 99 mL/min (>60); Estimated Creatinine Clearance 55.28 ml/min; Glucose 141 mg/dL (74-106); Potassium 3.6 mmol/L (3.5-5.1); Sodium Level 129 mmol/L (136-145)
--- NOTE | 2023-10-13 08:15 | PN.HOSP_ITS ---
Reason for Visit Reason for Visit: Diagnoses Other pulmonary embolism without acute cor pulmonale (10/11/23) Subjective Subjective Patient seen, chest pain resolved. Plan is to transition patient from heparin to apixaban Objective Data Objective Data Vital Signs: Vital Signs Temp Pulse Resp BP Pulse Ox O2 Del Method O2 Flow Rate 97.9 F 78 18 125/64 H 93 Room Air 2 10/13/23 03:04 10/13/23 03:04 10/13/23 03:04 10/13/23 03:04 10/13/23 03:04 10/13/23 06:59 10/12/23 16:02 Oxygen Flow Rate (L/min) 2 Oxygen Delivery Method Room Air Weight: 85.7 kg Body Mass Index (BMI) 33.5 Intake & Output: Intake and Output for Last 24 Hours 10/11/23 10/12/23 10/13/23 23:59 23:59 23:59 Intake Total 923.13 / 1323.13 1646.87 / 1646.87 Balance 923.13 / 1323.13 1646.87 / 1646.87 Lab / Micro Data 10/13/23 05:55 10/13/23 05:55 Labs: Laboratory Results - last 24 hr 10/12/23 06:45: APTT 66.4 H 10/13/23 05:55: WBC 8.1, RBC 4.27, Hgb 12.8, Hct 38.0, MCV 89.0, MCH 30.0, MCHC 33.7, RDW Std Deviation 42.5, RDW Coeff of Rosa Isela 13.0, Plt Count 156, MPV 10.5, Immature Gran % (Auto) 0.500, Neut % (Auto) 62.0, Lymph % (Auto) 26.4, [place] % (Auto) 8.3, Eos % (Auto) 2.6, Baso % (Auto) 0.2, Absolute Neuts (auto) 5.0, Absolute Lymphs (auto) 2.13, Nucleated RBC % 0, APTT 62.7 H, Sodium 129 L, Potassium 3.6, Chloride 98, Carbon Dioxide 24.0, Anion Gap 7, BUN 23 H, Creatinine 0.72, Estim Creat Clear Calc 55.28, Est GFR (MDRD) Af Amer 99, Est GFR (MDRD) Non-Af 82, BUN/Creatinine Ratio 31.9 H, Glucose 141 H, Calcium 8.4 L Physical Exam Narrative GENERAL: cooperative HEENT: Atraumatic; normocephalic EYES; Anicteric, Normal Conjunctiva NECK; supple, normal thyroid, RESPIRATORY: Diminished to auscultation CARDIOVASCULAR: Regular S1 S2, GI: soft, normoactive bowel sounds, : No Renal angle tenderness; EXTREMITIES: No edema, no clubbing, MUSCULOSKELETAL: no muscle wasting NEURO: Awake; no lateralizing signs. SKIN: No Rash PSYCH; Flat affect Assessment & Plan Assessment/Plan (1) Bilateral pulmonary embolism: PLAN: Plan Patient is an 83-year-old female admitted with left breast and shoulder pain with radiation to the jaw. She was found to have D-dimer of 8.2 subsequent imaging studies demonstrated bilaterally with evidence of right heart strain. No saddle embolism or pulmonary infarction. 1. Acute pulmonary embolism ? CTA of the chest was positive for Positive for PE bilaterally with evidence of right heart strain. No saddle embolism or pulmonary infarction. Patient admitted to monitored bed started on heparin subsequent evaluation with 2D echo ordered ? 10/12/2023; Patient seen complains of chest discomfort. Patient however remains hemodynamically stable. Case was discussed with vascular surgery today prior no plans for thrombectomy unless patient becomes unstaBLE ?Echo obtained the day prior did show The estimated ejection fraction is 65 %. Stage 1 diastolic dysfunction. D shaped septum in systole and diastole. Moderately dilated right ventricle. Moderately severe global right ventricular systolic dysfunction. The right atrium is mildly enlarged. Mild focal mitral valve thickening. Pulmonary artery systolic pressure is 65 mmHg. Mild (1+) aortic valve insufficiency.. Patient patient will remain on heparin with plans to transition to apixaban starting 10/13/2023 if patient continues to remain stable ? 10/13/2023 patient started on apixaban 10 mg p.o. twice daily 2. Hypertension - Blood pressure controlled, home medications continued with dose adjustment as needed 3. Hypothyroidism - Patient is on levothyroxine home dose continued 4. Class I obesity with BMI of 33.5 ? Weight loss advised 5. Lactic acidosis ? Present on admission to secondary to hypoxia no evidence of infection time spent in the patient's overall evaluation,decision-making process, review of diagnostic data, adjustment of management, discussion with other providers, nursing nursing and ancillary staff involved in patient's care documentation, 38 minutes Charges/Coding Visit Charges Inpatient E&M: 92639 Subs Hosp L2
[2023-10-13] MEDS: Fluticasone 0.05% 1 SPRAY NASAL.SRY NASAL (09:10)
[2023-10-13] MEDS: hydroCHLOROthiazide 12.5mg 12.5 MG PO (09:10)
[2023-10-13] MEDS: Losartan Potassium 100 MG Tablet PO (09:10)
--- NOTE | 2023-10-13 11:57 | PN.SURG_ITS ---
Subjective Subjective I saw Jessika this morning, she was up to the chair. Her and [id number] at bedside. She reports she slept very well overnight. She reports her chest pain has resolved and she also denies any SOB. She is on room air today and saturating well at 95%. Objective Data Objective Data Vital Signs: Vital Signs Temp Pulse Resp BP Pulse Ox O2 Del Method O2 Flow Rate 97.9 F 98 18 126/76 H 95 Room Air 2 10/13/23 09:09 10/13/23 09:09 10/13/23 09:09 10/13/23 09:09 10/13/23 09:13 10/13/23 09:13 10/12/23 16:02 Oxygen Flow Rate (L/min) 2 Oxygen Delivery Method Room Air Weight: 188 lb 14.978 oz Body Mass Index (BMI) 33.5 Intake & Output: Intake and Output for Last 24 Hours 10/11/23 10/12/23 10/13/23 23:59 23:59 23:59 Intake Total 923.13 / 1323.13 1646.87 / 1646.87 Balance 923.13 / 1323.13 1646.87 / 1646.87 Lab / Micro Data 10/13/23 05:55 10/13/23 05:55 Labs: Laboratory Results - last 24 hr 10/13/23 05:55: WBC 8.1, RBC 4.27, Hgb 12.8, Hct 38.0, MCV 89.0, MCH 30.0, MCHC 33.7, RDW Std Deviation 42.5, RDW Coeff of Rosa Isela 13.0, Plt Count 156, MPV 10.5, Immature Gran % (Auto) 0.500, Neut % (Auto) 62.0, Lymph % (Auto) 26.4, [place] % (Auto) 8.3, Eos % (Auto) 2.6, Baso % (Auto) 0.2, Absolute Neuts (auto) 5.0, Absolute Lymphs (auto) 2.13, Nucleated RBC % 0, APTT 62.7 H, Sodium 129 L, Potassium 3.6, Chloride 98, Carbon Dioxide 24.0, Anion Gap 7, BUN 23 H, Creatinine 0.72, Estim Creat Clear Calc 55.28, Est GFR (MDRD) Af Amer 99, Est GFR (MDRD) Non-Af 82, BUN/Creatinine Ratio 31.9 H, Glucose 141 H, Calcium 8.4 L Physical Exam Const alert and oriented x3 General Appearance: cooperative and comfortable HEENT normocephalic, head/scalp atraumatic, hearing grossly normal bilaterally, external ears normal and external nose normal Head and Scalp: normal to inspection and normocephalic Eyes EOMs intact bilaterally General Eye: normal appearance of both eyes Neck General: normal visual inspection and trachea midline Resp normal respiratory effort, no retractions and no use of accessory muscles Effort and Inspection: able to speak in complete sentences; Negative for labored, grunting or stridor Cardio regular rate and regular rhythm Extremity normal to inspection and no clubbing, cyanosis or edema Skin no rashes or lesions noted Trauma: no lacerations or abrasions Neuro oriented x3, CN's II-XII intact bilaterally, moves all extremities, no focal motor deficits and no sensory deficits noted Speech: speech normal Psych mental status grossly normal Appearance: grossly normal Attitude: calm and engaged Activity / Motor Behavior: appropriate eye contact Speech: normal speech Mood & Affect: euthymic mood Judgement: judgement good Assessment & Plan Assessment/Plan (1) Bilateral pulmonary embolism: PLAN: She is now maintaining good O2 saturation on room air and without any SOB. Her pleuritic chest pain has resolved. Plan is to transition to DOAC today and then potential discharge tomorrow. Plan is for walking oximetry prior to discharge. Will continue to follow. Charges/Coding Visit Charges Inpatient E&M: 66545 Subs Hosp L2
[2023-10-13] MEDS: APIXABAN 5 MG TABLET 10 MG PO ×2 (12:36→22:20)
[2023-10-13] MEDS: 0.9% Saline Lock 10 ML Syringe IV (12:37)
--- NOTE | 2023-10-13 19:49 | PN.CC_ITS ---
Objective Data Objective Data Vital Signs: Vital Signs Last response 3 Temperature 36.8 C 10/13/23 15:15 Temperature Source Oral 10/13/23 15:15 Pulse Rate 74 10/13/23 15:15 Pulse Strength Weak (1+) 10/13/23 09:13 Respiratory Rate 18 10/13/23 15:15 Respiratory Effort Normal, Non-Labored 10/13/23 19:42 Respiratory Depth Normal 10/13/23 19:42 Respiratory Pattern Normal 10/13/23 19:42 Blood Pressure 124/57 H 10/13/23 15:15 Blood Pressure Mean 79 10/13/23 15:15 Blood Pressure Source Monitor 10/13/23 03:04 Blood Pressure Position Semi-Fowlers 10/13/23 03:04 Blood Pressure Location Right Arm 10/13/23 03:04 Pulse Ox 93 10/13/23 15:15 Oxygen Delivery Method Room Air 10/13/23 19:42 Oxygen Flow Rate (L/min) 2 10/12/23 16:02 I&O: I&O Last 24 Hours 3 10/12/23 10/13/23 10/13/23 23:59 11:59 23:59 Intake Total 1020 / 1646.87 966.6 / 966.6 Balance 1020 / 1646.87 966.6 / 966.6 I&O: Total Stay 3 10/11/23 01:57 thru 10/13/23 18:21 Intake Total 3536.60 Balance 3536.60 Current Meds Ordered / Administered: Current meds ordered / Administered 3 Generic Name Dose Route Start Last Admin Trade Name Calvinq PRN Reason Stop Dose Admin Acetaminophen 650 mg 10/11/23 04:44 10/12/23 21:05 Acetaminophen 325 Mg Tablet PO 650 mg Q6H PRN PRN Administration Pain 1-10 Or Fever >100.7 Apixaban 10 mg 10/13/23 12:00 10/13/23 12:36 Apixaban 5 Mg Tablet PO 10 mg BID LISSA Administration Fluticasone Propionate 1 spray 10/11/23 10:00 10/13/23 09:10 Fluticasone 0.05% 1 [place] Nasal.Sry NASAL 1 spray DAILY LISSA Administration Hydrochlorothiazide 12.5 mg 10/11/23 10:00 10/13/23 09:10 Hydrochlorothiazide 12.5mg PO 12.5 mg DAILY LISSA Administration Protocol Sodium Chloride 250 mls @ 15 mls/hr 10/11/23 04:48 IV .[id number] PRN Saline Flush Sodium Chloride 250 mls @ 15 mls/hr 10/11/23 04:48 IV .[id number] PRN Additional IVPB Infusion Levothyroxine Sodium 75 mcg 10/11/23 06:00 10/13/23 05:40 Levothyroxine 75 Mcg Tablet PO 75 mcg 0600 LISSA Administration Losartan Potassium 100 mg 10/11/23 10:00 10/13/23 09:10 Losartan Potassium 100 Mg Tablet PO 100 mg DAILY LISSA Administration Protocol Ondansetron HCl 4 mg 10/11/23 04:44 Ondansetron 4 Mg/2 Ml Vial IV Q8H PRN PRN NAUSEA/VOMITING Oxycodone HCl 2.5 - 5 mg 10/11/23 04:44 10/12/23 09:12 Oxycodone 5 Mg Tablet PO 5 mg Q4H PRN PRN Administration Pain Score 4-10 Sodium Chloride 10 - 40 ml 10/11/23 04:48 10/13/23 12:37 0.9% Saline Lock 10 Ml Syringe IV 10 ml UD PRN Administration SALINE FLUSH Lab / Micro Data 10/13/23 05:55 10/13/23 05:55 Labs: Laboratory Results - last 24 hr 10/13/23 05:55: WBC 8.1, RBC 4.27, Hgb 12.8, Hct 38.0, MCV 89.0, MCH 30.0, MCHC 33.7, RDW Std Deviation 42.5, RDW Coeff of Rosa Isela 13.0, Plt Count 156, MPV 10.5, Immature Gran % (Auto) 0.500, Neut % (Auto) 62.0, Lymph % (Auto) 26.4, [place] % (Auto) 8.3, Eos % (Auto) 2.6, Baso % (Auto) 0.2, Absolute Neuts (auto) 5.0, Absolute Lymphs (auto) 2.13, Nucleated RBC % 0, APTT 62.7 H, Sodium 129 L, Potassium 3.6, Chloride 98, Carbon Dioxide 24.0, Anion Gap 7, BUN 23 H, Creatinine 0.72, Estim Creat Clear Calc 55.28, Est GFR (MDRD) Af Amer 99, Est GFR (MDRD) Non-Af 82, BUN/Creatinine Ratio 31.9 H, Glucose 141 H, Calcium 8.4 L Assessment and Plan . Assessment and plan: Chart and data reviewed She is clinically stable Plans noted We will be available as needed.
--- NOTE | 2023-10-13 20:31 | EKG12_ITS ---
Test Reason : RYTHM CHANGE Blood Pressure : / mmHG Vent. Rate : 120 BPM Atrial Rate : 000 BPM P-R Int : 000 ms QRS Dur : 086 ms QT Int : 346 ms P-R-T Axes : 000 062 -27 degrees QTc Int : 489 ms Atrial fibrillation with rapid ventricular response ST & T wave abnormality, consider inferior ischemia Abnormal ECG When compared with ECG of 11-OCT-2023 01:59, Atrial fibrillation has replaced Sinus rhythm Confirmed by Romario Jean-Baptiste ([id number]), photo editor SAURABH WEN ([id number]) on 10/16/2023 9:15:16 AM Referred By: ENID Confirmed By:Romario Jean-Baptiste
--- NOTE | 2023-10-13 21:22 | PCM.HOSP.N ---
Hospitalist Note Patient has been going out of atrial fibrillation but around 193 to about 2119, patient was in A-fib with RVR with rates up to the 140s. Patient was asymptomatic and by the time I went and saw her she had converted back to normal sinus rhythm. This had been the longest bout of A-fib with RVR that she has been having. Certainly having A-fib with RVR due to the cardiac strain from her PE. Will start her on metoprolol 25 mg twice daily as well as 5 mg IV every 6 hours as needed for tachycardia. Patient already anticoagulated.
[2023-10-13] MEDS: Metoprolol Tartrate 25 MG Tablet PO (21:30)
[2023-10-14] MEDS: Ondansetron 4 MG/2 ML Vial IV (00:54)
[2023-10-14] MEDS: 0.9% Saline Lock 10 ML Syringe IV (00:55)
[2023-10-14 04:03] VITALS: BP 132/79; PULSE 72; RESP 18; TEMP 36.1; O2SAT 92
[2023-10-14 05:58] LABS: Absolute Lymphocyte Count 2.18 X10^3/uL (0.83-4.51); Absolute Neutrophil Count 4.2 X10^3/uL (2.0-7.7); Basophil# 0.03 X10^3/uL; Basophil% 0.4 % (0-1); Eosinophil# 0.18 X10^3/uL; Eosinophils% 2.5 % (0-5); Hematocrit 40.1 % (37-47); Hemoglobin 13.4 g/dL (12.0-15.0); Lymphocyte # 2.18 X10^3/ul (0.83-4.51); Lymphocyte % 30.4 % (19-41); Mean Corp Hgb Conc 33.4 g/dL (32-36); Mean Corpuscular Hgb 29.8 pg (27.0-32.0); Mean Corpuscular Volume 89.1 fL (81-99); Mean Platelet Vol. 10.7 fl (6.2-12.0); Monocyte# 0.59 X10^3/uL; Monocyte% 8.2 % (0-10); NRBC Flagged by Analyzer 0 % (0-5); Neutrophil # 4.15 X10^3/uL (2.7-7.7); Neutrophil % 57.8 % (47-70); Platelet Count 192 K/mm3 (150-450); RBC Distribution Width CV 12.8 % (11.6-14.6); RBC Distribution Width SD 42.2 fl (35.1-43.9); White Blood Count 7.2 K/mm3 (4.4-11.0)
[2023-10-14] MEDS: Levothyroxine 75 MCG Tablet PO (06:01)
[2023-10-14 06:10] LABS: Partial Thromboplast Time 41.5 Seconds (24.1-36.2)
[2023-10-14 06:29] LABS: Anion Gap 7 (5-15); BUN 21 mg/dL (7-18); BUN/Creat Ratio 37.2 RATIO (10-20); Calcium,Total 8.7 mg/dL (8.5-10.1); Chloride 97 mmol/L (98-107); Creatinine, Serum 0.56 mg/dL (0.55-1.02); EST Glomerular Filtration Rate 109 mL/min (>60); Est Glom Filt Rate - Afr Amer 131 mL/min (>60); Estimated Creatinine Clearance 55.28 ml/min; Glucose 134 mg/dL (74-106); Potassium 3.7 mmol/L (3.5-5.1); Sodium Level 130 mmol/L (136-145)
--- NOTE | 2023-10-14 07:51 | PCM.PN.HOSP ---
Reason for Visit Reason for Visit: Diagnoses Other pulmonary embolism without acute cor pulmonale (10/11/23) Subjective Subjective Patient seen went into A-fib with RVR did receive metoprolol converted back to sinus rhythm. Plan is for patient to be assessed for home oxygen needs prior to discharge Objective Data Objective Data Vital Signs: Vital Signs Temp Pulse Resp BP Pulse Ox O2 Del Method O2 Flow Rate 97.0 F L 72 18 132/79 H 92 Room Air 2 10/14/23 04:03 10/14/23 04:03 10/14/23 04:03 10/14/23 04:03 10/14/23 04:03 10/14/23 04:03 10/12/23 16:02 Oxygen Flow Rate (L/min) 2 Oxygen Delivery Method Room Air Weight: 85.7 kg Body Mass Index (BMI) 33.5 Intake & Output: Intake and Output for Last 24 Hours 10/12/23 10/13/23 10/14/23 23:59 23:59 23:59 Intake Total 1646.87 / 1646.87 1086.6 / 1086.6 Balance 1646.87 / 1646.87 1086.6 / 1086.6 Lab / Micro Data 10/14/23 05:27 10/14/23 05:27 Labs: Laboratory Results - last 24 hr 10/14/23 05:27: WBC 7.2, RBC 4.50, Hgb 13.4, Hct 40.1, MCV 89.1, MCH 29.8, MCHC 33.4, RDW Std Deviation 42.2, RDW Coeff of Rosa Isela 12.8, Plt Count 192, MPV 10.7, Immature Gran % (Auto) 0.700, Neut % (Auto) 57.8, Lymph % (Auto) 30.4, [place] % (Auto) 8.2, Eos % (Auto) 2.5, Baso % (Auto) 0.4, Absolute Neuts (auto) 4.2, Absolute Lymphs (auto) 2.18, Nucleated RBC % 0, APTT 41.5 H, Sodium 130 L, Potassium 3.7, Chloride 97 L, Carbon Dioxide 26.0, Anion Gap 7, BUN 21 H, Creatinine 0.56, Estim Creat Clear Calc 55.28, Est GFR (MDRD) Af Amer 131, Est GFR (MDRD) Non-Af 109, BUN/Creatinine Ratio 37.2 H, Glucose 134 H, Calcium 8.7 Physical Exam Narrative GENERAL: cooperative HEENT: Atraumatic; normocephalic EYES; Anicteric, Normal Conjunctiva NECK; supple, normal thyroid, RESPIRATORY: Diminished to auscultation CARDIOVASCULAR: Regular S1 S2, GI: soft, normoactive bowel sounds, : No Renal angle tenderness; EXTREMITIES: No edema, no clubbing, MUSCULOSKELETAL: no muscle wasting NEURO: Awake; no lateralizing signs. SKIN: No Rash PSYCH; Flat affect Assessment & Plan Assessment/Plan (1) Bilateral pulmonary embolism: PLAN: Plan Patient is an 83-year-old female admitted with left breast and shoulder pain with radiation to the jaw. She was found to have D-dimer of 8.2 subsequent imaging studies demonstrated bilaterally with evidence of right heart strain. No saddle embolism or pulmonary infarction. 1. Acute pulmonary embolism ? CTA of the chest was positive for Positive for PE bilaterally with evidence of right heart strain. No saddle embolism or pulmonary infarction. Patient admitted to monitored bed started on heparin subsequent evaluation with 2D echo ordered ? 10/12/2023; Patient seen complains of chest discomfort. Patient however remains hemodynamically stable. Case was discussed with vascular surgery today prior no plans for thrombectomy unless patient becomes unstaBLE ?Echo obtained the day prior did show The estimated ejection fraction is 65 %. Stage 1 diastolic dysfunction. D shaped septum in systole and diastole. Moderately dilated right ventricle. Moderately severe global right ventricular systolic dysfunction. The right atrium is mildly enlarged. Mild focal mitral valve thickening. Pulmonary artery systolic pressure is 65 mmHg. Mild (1+) aortic valve insufficiency.. Patient patient will remain on heparin with plans to transition to apixaban starting 10/13/2023 if patient continues to remain stable ? 10/13/2023 patient started on apixaban 10 mg p.o. twice daily 2. Hypertension - Blood pressure controlled, home medications continued with dose adjustment as needed 3. Hypothyroidism - Patient is on levothyroxine home dose continued 4. Class I obesity with BMI of 33.5 ? Weight loss advised 5. Lactic acidosis ? Present on admission to secondary to hypoxia no evidence of infection 6. Paroxysmal A-fib ? Possibly precipitated by patient underlying pulmonary embolism. Patient converted back to sinus rhythm with metoprolol 7. Acute hypoxia ? Secondary to patient pulmonary embolism ? I have reviewed the oxygen testing, and this patient qualifies for the home equipment and portability. The patient is mobile in the home and the community. time spent in the patient's overall evaluation,decision-making process, review of diagnostic data, adjustment of management, discussion with other providers, nursing nursing and ancillary staff involved in patient's care documentation, 38 minutes Charges/Coding Visit Charges Inpatient E&M: 09678 Subs Hosp L2
[2023-10-14 08:31] VITALS: PULSE 69
[2023-10-14] MEDS: Fluticasone 0.05% 1 SPRAY NASAL.SRY NASAL (08:31)
[2023-10-14] MEDS: Losartan Potassium 100 MG Tablet PO (08:31)
[2023-10-14] MEDS: hydroCHLOROthiazide 12.5mg 12.5 MG PO (08:31)
[2023-10-14] MEDS: Metoprolol Tartrate 25 MG Tablet PO (08:31)
[2023-10-14] MEDS: APIXABAN 5 MG TABLET 10 MG PO (08:31)
[2023-10-14 08:34] VITALS: BP 144/69; PULSE 70; RESP 18; TEMP 36.7; O2SAT 92
[2023-10-14] MEDS: Polyethylene Glycol 3350 17 GM PACKET PO (09:11)
[2023-10-14] MEDS: Docusate Sodium 100 MG Capsule PO (09:11)
[2023-10-14 09:20] VITALS: O2SAT 87; O2SAT 92; O2SAT 94
--- NOTE | 2023-10-14 09:30 | PCM.DC.SUM ---
Providers Date of Admission: 10/11/23 Date of Discharge: 10/14/23 Primary Care Physician: Dr. Walt Aguila MD Consultations 10/11/23 04:44 Consult: Vascular Surgery Routine Consulting Provider: James Hernandez Reason for Consult: PE with right heart strain EMERGENT Consult: No Notified: Yes Date Notified: 10/11/23 Time Notified: 06:27 Method of Notification: Text 10/11/23 07:34 Consult: Climate Change Analyst / Pulmonary Medicine Routine Consulting Provider: Jose Alfredo Jha Reason for Consult: PE, eval for possible thrombectomy EMERGENT Consult: No Notified: Yes Date Notified: 10/11/23 Time Notified: 08:10 Method of Notification: Text Reason For Visit: PE Diagnosis Discharge Diagnosis (1) Bilateral pulmonary embolism: Status: Acute Code(s): I26.99 - Other pulmonary embolism without acute cor pulmonale Plan Patient is an 83-year-old female admitted with left breast and shoulder pain with radiation to the jaw. She was found to have D-dimer of 8.2 subsequent imaging studies demonstrated bilaterally with evidence of right heart strain. No saddle embolism or pulmonary infarction. 1. Acute pulmonary embolism ? CTA of the chest was positive for Positive for PE bilaterally with evidence of right heart strain. No saddle embolism or pulmonary infarction. Patient admitted to monitored bed started on heparin subsequent evaluation with 2D echo ordered ? 10/12/2023; Patient seen complains of chest discomfort. Patient however remains hemodynamically stable. Case was discussed with vascular surgery today prior no plans for thrombectomy unless patient becomes unstaBLE ?Echo obtained the day prior did show The estimated ejection fraction is 65 %. Stage 1 diastolic dysfunction. D shaped septum in systole and diastole. Moderately dilated right ventricle. Moderately severe global right ventricular systolic dysfunction. The right atrium is mildly enlarged. Mild focal mitral valve thickening. Pulmonary artery systolic pressure is 65 mmHg. Mild (1+) aortic valve insufficiency.. Patient patient will remain on heparin with plans to transition to apixaban starting 10/13/2023 if patient continues to remain stable ? 10/13/2023 patient started on apixaban 10 mg p.o. twice daily 2. Hypertension - Blood pressure controlled, home medications continued with dose adjustment as needed 3. Hypothyroidism - Patient is on levothyroxine home dose continued 4. Class I obesity with BMI of 33.5 ? Weight loss advised 5. Lactic acidosis ? Present on admission to secondary to hypoxia no evidence of infection 6. Paroxysmal A-fib ? Possibly precipitated by patient underlying pulmonary embolism. Patient converted back to sinus rhythm with metoprolol 7. Acute hypoxia ? Secondary to patient pulmonary embolism ? I have reviewed the oxygen testing, and this patient qualifies for the home equipment and portability. The patient is mobile in the home and the community. time spent in the patient's overall evaluation,decision-making process, review of diagnostic data, adjustment of management, discussion with other providers, nursing nursing and ancillary staff involved in patient's care documentation, 38 minutes Medications at Discharge Home Medications fluticasone propionate 50 mcg/actuation nasal spray,suspension (Flonase Allergy Relief) 1 spray intranasal DAILY 06/03/18 hydrochlorothiazide 12.5 mg tablet 12.5 mg PO DAILY 06/03/18 levothyroxine 75 mcg tablet 75 mcg PO DAILY 10/11/23 losartan 100 mg tablet 100 mg PO DAILY 10/11/23 acetaminophen 325 mg tablet 650 mg (2 x 325 mg) PO Q6H PRN PRN Pain 1-10 Or Fever >100.7 #0 tabs 10/14/23 apixaban 5 mg tablet (Eliquis) 5 mg PO BID #70 tabs 10/14/23 docusate sodium 100 mg capsule 100 mg PO BID #30 caps 10/14/23 metoprolol tartrate 25 mg tablet 25 mg PO BID 120 days #240 tabs 10/14/23 Physical Exam Narrative GENERAL: cooperative HEENT: Atraumatic; normocephalic EYES; Anicteric, Normal Conjunctiva NECK; supple, normal thyroid, RESPIRATORY: Diminished to auscultation CARDIOVASCULAR: Regular S1 S2, GI: soft, normoactive bowel sounds, : No Renal angle tenderness; EXTREMITIES: No edema, no clubbing, MUSCULOSKELETAL: no muscle wasting NEURO: Awake; no lateralizing signs. SKIN: No Rash PSYCH; Flat affect Weight / BMI Weight Weight: 85.7 kg Body Mass Index (BMI) 33.5 ABG / Lab / Microbiology Data 10/14/23 05:27 10/14/23 05:27 Laboratory: Laboratory Results - last 24 hr 10/14/23 05:27: WBC 7.2, RBC 4.50, Hgb 13.4, Hct 40.1, MCV 89.1, MCH 29.8, MCHC 33.4, RDW Std Deviation 42.2, RDW Coeff of Ros Aisela 12.8, Plt Count 192, MPV 10.7, Immature Gran % (Auto) 0.700, Neut % (Auto) 57.8, Lymph % (Auto) 30.4, [place] % (Auto) 8.2, Eos % (Auto) 2.5, Baso % (Auto) 0.4, Absolute Neuts (auto) 4.2, Absolute Lymphs (auto) 2.18, Nucleated RBC % 0, APTT 41.5 H, Sodium 130 L, Potassium 3.7, Chloride 97 L, Carbon Dioxide 26.0, Anion Gap 7, BUN 21 H, Creatinine 0.56, Estim Creat Clear Calc 55.28, Est GFR (MDRD) Af Amer 131, Est GFR (MDRD) Non-Af 109, BUN/Creatinine Ratio 37.2 H, Glucose 134 H, Calcium 8.7 D/C Instructions Discharge Diet: No restrictions Discharge Activity: Return to Normal Activity Call your doctor if you observe: Fever of 101 or Higher, Shortness of breath, Fainting spells and Chest pain Meaningful Use Info Meaningful Use Meaningful Use Diagnoses (Choose all that apply): VTE Ischemic Stroke Statin Dosing Therapy Reference: STATIN DOSE THERAPY REFERENCE: * Patients > 75 years receive moderate or high dose statin therapy. * Patients 75 years or YOUNGER should receive HIGH intensity statin dose unless contraindicated. You will be required to document reason for non-treatment if statin daily dose does not meet guidelines. HIGH DOSE STATIN THERAPY DAILY Atorvastatin > than or = to 40 mg Rosuvastatin > than or = to 20 mg Amlodipine + Atorvastatin > than or = to 2.5/40 mg Ezetimibe + Simvastatin 10/80 mg Simvastatin 80mg VTE Anticoag overlap given w/in hospital stay or rx'd at ut?: No Pt receive overlap for 5 days?: No Reason overlap not ordered, prescribed, or given for 5 days: Treatment Not Indicated Discharge Plan Admission Admit Date/Time: 10/11/23 04:09 Attending Provider: Paul Booth Primary Care Provider: Walt Aguila Consulting Providers: James Hernandez; James Davidson; Jose Alfredo Jha Discharge Orders/Prescriptions Prescriptions: New Eliquis 5 mg Tablet 5 mg PO BID Qty: 70 0RF Rx Instructions: 10 mg p.o. twice daily x 5 days and subsequently 5 mg p.o. twice daily docusate sodium 100 mg Capsule 100 mg PO BID Qty: 30 0RF acetaminophen 325 mg Tablet 650 mg PO Q6H PRN PRN (Reason: Pain 1-10 Or Fever >100.7) Qty: 0 0RF metoprolol tartrate 25 mg Tablet 25 mg PO BID 120 Days Qty: 240 0RF Continued hydrochlorothiazide 12.5 mg tablet 12.5 mg PO DAILY fluticasone propionate [Flonase Allergy Relief] 50 mcg/actuation spray,suspension 1 spray INTRANASAL DAILY levothyroxine 75 mcg tablet 75 mcg PO DAILY losartan 100 mg tablet 100 mg PO DAILY Referrals / Follow Up: Walt Aguila MD [Primary Care Provider] - Within 1 Week Disposition Disposition (needs filled in before D/C Order can be placed): Home, Self Care Charges/Coding Visit Charges Inpatient E&M: 29521 Disch Hosp >30min
--- NOTE | 2023-10-14 10:24 | CASEMGMT ---
Patient has order for discharge. Patient will need oxygen at discharge, script received and sent to [facility] via [facility]. Patient discharging on Eliquis, [facility] retail called and copy is $530.25, savings card applied. RN CM in to discuss needs at discharge. Patient and updated regarding oxygen setup. RN CM updated patient and regarding Eliquis copay, savings card, and to follow up with PCP for alternative options if too expensive. Patient and had no further questions or concerns.
== END 2023-10-14 11:14 | disposition home or self-care (01) | DRG 176 ==
LOC: ED 02:44 → PCU 04:25
PROVIDERS: Physician Assistant; Emergency Provider Emergency Medicine; PCP Family Medicine; Visit Provider Internal Medicine
DX: I26.99 Other pulmonary embolism without acute cor pulmonale (principal); E87.20 Acidosis, unspecified; I10 Essential (primary) hypertension; E03.9 Hypothyroidism, unspecified; I35.1 Nonrheumatic aortic (valve) insufficiency; E66.9 Obesity, unspecified; I48.0 Paroxysmal atrial fibrillation; F17.200 Nicotine dependence, unspecified, uncomplicated; R94.31 Abnormal electrocardiogram [ECG] [EKG]; Z66 Do not resuscitate; Z68.33 Body mass index [BMI] 33.0-33.9, adult; R79.89 Other specified abnormal findings of blood chemistry
CPT/HCPCS: 36415; 71275; 80048; 83605; 83735; 83880; 84100; 84484; 85025; 85379; 85610; 85730; 93005; 93306; 93970; 99285; Q9957; Q9967; A4216; C8929; J2405

== ENCOUNTER → 2024-01-15 | Outpatient (CLI) | payer MEDICARE, BC, SELFPAY ==
--- NOTE | 2024-01-15 08:11 | CT_ITS ---
STUDY: CT ABDOMEN AND PELVIS WITH CONTRAST REASON FOR EXAM: Female, 83 years old. R/O Malignancy recent PE RADIATION DOSAGE (If Supplied By Facility): CTDIvol = ( 16.64 ) mGy, DLP = ( 2103.54 ) mGycm TECHNIQUE: Oral and amp; IV Readi-CAT and amp; 100mL Isovue-300 was administered. Transaxial images were obtained from the dome of the diaphragm to the symphysis pubis. Multiplanar coronal and sagittal images were reformatted. The protocol utilizes one or more of the following dose reduction techniques: automated exposure control, adjustment of mA and/or kV according to patient size,and/or use of iterative reconstruction technique. COMPARISON: No relevant prior comparison study available FINDINGS: The visualized lung bases are unremarkable. The visualized portions of the heart are within normal limits. Coronary calcifications. 2 cm cyst in the lower edge of the right lobe of the liver. Multiple gallstones. Densities in the gallbladder could reflect dense bilaterally with calcium. No definite fistula to the duodenum is seen. Normal spleen. Normal pancreas. Normal bilateral adrenal glands. Normal visualized stomach. Normal small intestine. Fecal retention. Diverticulosis of the sigmoid colon. No evidence of acute diverticulitis. Narrowing of the rectosigmoid colon probably due to underdistention. The colon is better evaluated by colonoscopy. There is non-visualization of the appendix. There is diffuse atherosclerotic calcification of the abdominal aorta with elongation and tortuosity, but without a demonstrated aneurysm. No retroperitoneal adenopathy. Extrarenal pelvises bilaterally. No evidence of hydronephrosis. Bulging of the bladder and right laterally likely due to bladder diverticulum measuring about 3.7 cm. There is absence of the uterus consistent with a prior hysterectomy. Ventral hernia containing fat. Degenerative changes of the spine. CT/Abdomen/Pelvis WITH Contrast IMPRESSION: 1. Gallstones with dense bile probably with calcium. Correlation with nuclear medicine biliary scan is recommended. 2. Otherwise no focal acute inflammatory process 3. Probable bladder diverticulum. 4. Diverticulosis without evidence of acute diverticulitis. 5. Ventral hernia containing fat. Electronically Signed: Luc Valera MD at 11:29 EST ,
[2024-01-15 08:43] LABS: CREATININE FINGERSTICK < 1.0 mg/dL (0.55-1.02); EGFR FINGERSTICK > 60.0000 mL/min (>60)
== END | disposition home or self-care (01) ==
LOC: CT 08:11
PROVIDERS: PCP Family Medicine; Referring Provider Internal Medicine Cardiovascular Disease; Visit Provider Internal Medicine Cardiovascular Disease
DX: I10 Essential (primary) hypertension (principal); I27.20 Pulmonary hypertension, unspecified; I48.0 Paroxysmal atrial fibrillation; I51.89 Other ill-defined heart diseases
CPT/HCPCS: 74177; Q9967

== ENCOUNTER → 2024-02-27 | Outpatient (CLI) | payer MEDICARE, BC, SELFPAY ==
[2024-02-27 09:08] LABS: Mucous, Urine 0 SEEN /hpf (<or=2+); Red Blood Cells-Urine 0 SEEN /hpf (0-5); Squamous Epithelial Cells - UA 0 SEEN /hpf (5-10)
[2024-02-27 10:46] LABS: Absolute Lymphocyte Count 2.14 X10^3/uL (0.83-4.51); Absolute Neutrophil Count 2.6 X10^3/uL (2.0-7.7); Basophil# 0.03 X10^3/uL; Basophil% 0.6 % (0-1); Eosinophils% 1.9 % (0-5); Hematocrit 43.7 % (37-47); Hemoglobin 14.5 g/dL (12.0-15.0); Lymphocyte # 2.14 X10^3/ul (0.83-4.51); Lymphocyte % 41.4 % (19-41); Mean Corp Hgb Conc 33.2 g/dL (32-36); Mean Corpuscular Hgb 30.7 pg (27.0-32.0); Mean Corpuscular Volume 92.4 fL (81-99); Mean Platelet Vol. 10.5 fl (6.2-12.0); Monocyte% 5.8 % (0-10); NRBC Flagged by Analyzer 0 % (0-5); Neutrophil # 2.59 X10^3/uL (2.7-7.7); Neutrophil % 50.1 % (47-70); Platelet Count 203 K/mm3 (150-450); RBC Distribution Width CV 13.1 % (11.6-14.6); RBC Distribution Width SD 44.4 fl (35.1-43.9); Red Blood Count 4.73 M/mm3 (4.2-5.4); White Blood Count 5.2 K/mm3 (4.4-11.0)
[2024-02-27 10:54] LABS: Vitamin D,25 Hydroxy 61.3 ng/mL
[2024-02-27 10:55] LABS: Color, Urine Yellow (Yellow); Glucose, Dipstick Normal (Normal); Ketone-Dipstick Negative (Negative); Leukocyte Esterase-Dipstick 500 /ul (Negative); Nitrite-Dipstick Positive (Negative); Occult Blood-Urine 10 /ul (Negative); Protein-Dipstick 15 mg/dl (Negative); Urine Bilirubin Dipstick Negative (Negative); Urine Clarity Sl. Cloudy (Clear); Urine Urobilinogen Normal (Normal)
[2024-02-27 11:00] LABS: ALB/GLOB Ratio 1.1 RATIO (0.9-2.4); AST(SGOT) 11 U/L (15-37); Alanine Aminotransfer ALT/SGPT 18 U/L (13-56); Albumin, Serum 3.6 g/dL (3.2-5.0); Alkaline Phosphatase 84 U/L (45-117); Anion Gap 8 (5-15); BUN 21 mg/dL (7-18); BUN/Creat Ratio 30.2 RATIO (10-20); Calcium,Total 9.6 mg/dL (8.5-10.1); Chloride 106 mmol/L (98-107); Cholesterol 189 mg/dL (200); EST Glomerular Filtration Rate 85 mL/min (>60); Est Glom Filt Rate - Afr Amer 103 mL/min (>60); Globulin 3.3 g/dL (2.2-4.2); Glucose 113 mg/dL (74-106); High Density Lipoprotein 51 mg/dL; Magnesium 2.1 mg/dL (1.6-2.6); Protein, Total 6.9 g/dL (6.4-8.2); Sodium Level 137 mmol/L (136-145); T4 Free Direct 1.42 ng/dL (0.76-1.46); Thyroid Stim Hormone (TSH) 0.024 uIU/mL (0.358-3.740); Triglycerides 203 mg/dL; Very Low Density Lipoprotein 41 mg/dL (5-40)
[2024-02-27 11:13] LABS: Bacteria 1+ /hpf (None Seen); White Blood Cells 10-25 SEEN /hpf (0-5)
[2024-02-28 16:29] LABS: Hemoglobin A1c 5.2 % (3.8-5.6)
== END | disposition home or self-care (01) ==
LOC: MFPLAB 08:28
PROVIDERS: PCP Family Medicine; Referring Provider Family Medicine; Visit Provider Family Medicine
DX: R73.09 Other abnormal glucose (principal); I48.0 Paroxysmal atrial fibrillation; R82.81 Pyuria; E03.8 Other specified hypothyroidism; M81.0 Age-related osteoporosis without current pathological fracture
CPT/HCPCS: 36415; 80053; 80061; 81001; 82306; 83036; 83735; 84439; 84443; 85025

== ENCOUNTER 2024-06-26 08:47 | Outpatient (CLI) | payer MEDICARE, BC, SELFPAY ==
[2024-06-26 08:53] LABS: Bacteria 0 SEEN /hpf (None Seen); Mucous, Urine 0 SEEN /hpf (<or=2+); Red Blood Cells-Urine 0 SEEN /hpf (0-5); Squamous Epithelial Cells - UA 0 SEEN /hpf (5-10); White Blood Cells 0 SEEN /hpf (0-5)
[2024-06-26 10:04] LABS: Absolute Lymphocyte Count 2.14 X10^3/uL (0.83-4.51); Absolute Neutrophil Count 3.2 X10^3/uL (2.0-7.7); Basophil# 0.03 X10^3/uL; Basophil% 0.5 % (0-1); Eosinophil# 0.15 X10^3/uL; Eosinophils% 2.6 % (0-5); Hematocrit 41.9 % (37-47); Hemoglobin 13.8 g/dL (12.0-15.0); Lymphocyte # 2.14 X10^3/ul (0.83-4.51); Lymphocyte % 36.4 % (19-41); Mean Corp Hgb Conc 32.9 g/dL (32-36); Mean Corpuscular Hgb 29.8 pg (27.0-32.0); Mean Corpuscular Volume 90.5 fL (81-99); Mean Platelet Vol. 10.1 fl (6.2-12.0); Monocyte# 0.38 X10^3/uL; Monocyte% 6.5 % (0-10); NRBC Flagged by Analyzer 0 % (0-5); Neutrophil # 3.17 X10^3/uL (2.7-7.7); Neutrophil % 53.8 % (47-70); Platelet Count 223 K/mm3 (150-450); RBC Distribution Width CV 13.2 % (11.6-14.6); Red Blood Count 4.63 M/mm3 (4.2-5.4); White Blood Count 5.9 K/mm3 (4.4-11.0)
[2024-06-26 10:46] LABS: ALB/GLOB Ratio 1.5 RATIO (0.9-2.4); AST(SGOT) 15 U/L (<=31); Alanine Aminotransfer ALT/SGPT 12 U/L (<=34); Albumin, Serum 4.1 g/dL (3.4-4.8); Alkaline Phosphatase 100 U/L (35-104); Anion Gap 12 (5-15); BUN 22 mg/dL (4-19); BUN/Creat Ratio 32.5 RATIO (10-20); Calcium,Total 9.7 mg/dL (7.6-11.0); Carbon Dioxide 21.7 mmol/L (21.0-32.0); Chloride 101 mmol/L (98-108); Cholesterol 194 mg/dL (<=200); Creatinine, Serum 0.68 mg/dL (0.70-1.20); EST Glomerular Filtration Rate 86 (>60); Globulin 2.8 g/dL (2.2-4.2); Glucose 114 mg/dL (70-99); High Density Lipoprotein 50 mg/dL; Low Density Lipoprotein Calc. 114 mg/dL; Magnesium 1.9 mg/dL (1.5-2.2); Potassium 4.4 mmol/L (3.3-5.1); Sodium Level 135 mmol/L (133-145); Triglycerides 149 mg/dL; Very Low Density Lipoprotein 30 mg/dL (5-40)
[2024-06-26 10:54] LABS: Thyroid Stim Hormone (TSH) 0.011 uIU/mL (0.300-4.200); Vitamin D,25 Hydroxy 55.3 ng/mL (30-100)
[2024-06-26 11:02] LABS: Protein, Urine (Random) 11.7 mg/dL (0.0-12.0)
[2024-07-01 15:30] LABS: Hemoglobin A1c 5.3 % (<=5.6)
== END 2024-06-26 23:59 | disposition home or self-care (01) ==
LOC: MFPLAB 08:48
PROVIDERS: PCP Family Medicine; Referring Provider Family Medicine; Visit Provider Family Medicine
DX: I10 Essential (primary) hypertension (principal); E03.8 Other specified hypothyroidism; M81.0 Age-related osteoporosis without current pathological fracture; R73.09 Other abnormal glucose
CPT/HCPCS: 36415; 80053; 80061; 81001; 82306; 83036; 83735; 84156; 84439; 84443; 85025

== ENCOUNTER → 2024-10-22 | Outpatient (CLI) | payer MEDICARE, BC, SELFPAY ==
--- NOTE | 2024-10-22 08:45 | ECHOD_ITS ---
Reason For Study Reason For Study: PHTN Procedure This was a 2D Doppler, Color Flow transthoracic echocardiogram. Exam performed in department. Left Ventricle Normal LV size. Left ventricular systolic function is normal. The left ventricular ejection fraction is 60 %. No regional wall motion abnormalities noted. Right Ventricle Normal RV size. Normal systolic function. Atria Normal left atrium. Normal right atrium. Mitral Valve Normal mitral valve. Tricuspid Valve Normal tricuspid valve. Mild to moderate (1-2+) tricuspid valve insufficiency. Pulmonary artery systolic pressure is 47 mmHg. Aortic Valve Trisinus/trileaflet aortic valve. Pulmonic Valve Normal pulmonic valve. Great Vessels Normal aortic root. The pulmonary artery is normal size. Inferior vena cava collapse with respiration. Pericardium/Pleural No pericardial effusion. MMode/2D Measurements & Calculations LVIDd: 4.7 cm IVSd: 0.92 cm Ao root diam: 3.5 cm LVIDs: 2.6 cm LVPWd: 1.2 cm RVDd: 4.1 cm FS: 44.5 % LAV(MOD-bp): 46.4 ml LVAd ap4: 19.3 cm2 SV(MOD-sp4): 28.3 ml LAV(MOD-bp) Indexed: 25.6 ml/m2 LVLd ap4: 7.3 cm SI(MOD-sp4): 15.6 ml/m2 LAV(MOD-sp2): 45.4 ml EDV(MOD-sp4): 43.4 ml LAV(MOD-sp4): 44.5 ml EDV(sp4-el): 43.1 ml LVAs ap4: 9.3 cm2 LVLs ap4: 5.3 cm ESV(MOD-sp4): 15.0 ml ESV(sp4-el): 13.9 ml EF(MOD-sp4): 65.3 % EF(sp4-el): 67.7 % SV(sp4-el): 29.2 ml LA A4 area: 15.7 cm2 LA dimension(2D): 3.8 cm RA A4 area: 13.8 cm2 Time Measurements MV dec time: 0.22 sec Doppler Measurements & Calculations MV E max ming: 74.9 cm/sec Lat Peak E' Ming: 9.1 cm/sec Med Peak E' Ming: 6.8 cm/sec MV A max ming: 87.2 cm/sec E/E' lat: 8.2 E/E' med: 11.1 MV E/A: 0.86 MV V2 max: 112.9 cm/sec Ao V2 max: 130.8 cm/sec MV max P.1 mmHg MV dec slope: 346.4 cm/sec2 Ao max P.9 mmHg MV V2 mean: 65.3 cm/sec Ao V2 mean: 96.4 cm/sec MV mean P.0 mmHg Ao mean P.1 mmHg MV V2 VTI: 28.1 cm Ao V2 VTI: 30.2 cm AV (velocity ratio): 0.89 AI max ming: 402.1 cm/sec LV V1 max: 117.7 cm/sec PA V2 max: 108.8 cm/sec AI max P.7 mmHg LV V1 max P.5 mmHg PA V2 mean: 73.6 cm/sec LV V1 mean P.0 mmHg AI dec slope: 292.0 cm/sec2 LV V1 mean: 80.4 cm/sec AI P1/2t: 403.3 msec LV V1 VTI: 27.0 cm TR max ming: 329.8 cm/sec TR max P.5 mmHg ECHO/Echo Complete Interpretation Summary Normal LV size. Left ventricular systolic function is normal. The left ventricular ejection fraction is 60 %. Pulmonary artery systolic pressure is 47 mmHg. Ordering Physician: Dianna Alcantara Referring Physician: Dianna Alcantara Performed By: Kayla Dhaliwal RCS
== END | disposition home or self-care (01) ==
LOC: CVS 08:41
PROVIDERS: PCP Family Medicine; Referring Provider Nurse Practitioner Gerontology; Visit Provider Nurse Practitioner Gerontology
DX: I51.89 Other ill-defined heart diseases (principal); I27.20 Pulmonary hypertension, unspecified
CPT/HCPCS: 93306

== ENCOUNTER → 2024-11-20 | Outpatient (CLI) | payer MEDICARE, BC, SELFPAY ==
[2024-11-20 09:34] LABS: Mucous, Urine 0 SEEN /hpf (<or=2+)
[2024-11-20 10:25] LABS: Color, Urine Yellow (Yellow); Glucose, Dipstick Normal (Normal); Ketone-Dipstick Negative (Negative); Leukocyte Esterase-Dipstick 500 /ul (Negative); Nitrite-Dipstick Positive (Negative); Occult Blood-Urine 25 /ul (Negative); Protein-Dipstick Negative (Negative); Specific Gravity, Urine 1.015 (1.002-1.030); Urine Bilirubin Dipstick Negative (Negative)
[2024-11-20 10:55] LABS: Red Blood Cells-Urine 0-5 SEEN /hpf (0-5); Squamous Epithelial Cells - UA 0-5 SEEN /hpf (5-10)
[2024-11-20 11:02] LABS: AST(SGOT) 17 U/L (<=31); Alanine Aminotransfer ALT/SGPT 17 U/L (<=34); Albumin, Serum 4.0 g/dL (3.4-4.8); Alkaline Phosphatase 101 U/L (35-104); Anion Gap 10 (5-15); BUN 20 mg/dL (4-19); BUN/Creat Ratio 31.4 RATIO (10-20); Calcium,Total 10.1 mg/dL (7.6-11.0); Carbon Dioxide 25.3 mmol/L (21.0-32.0); Chloride 103 mmol/L (98-108); Cholesterol 181 mg/dL (<=200); Globulin 2.7 g/dL (2.2-4.2); Glucose 119 mg/dL (70-99); Low Density Lipoprotein Calc. 99 mg/dL; Magnesium 2.0 mg/dL (1.5-2.2); Potassium 5.1 mmol/L (3.3-5.1); Triglycerides 186 mg/dL; Very Low Density Lipoprotein 37 mg/dL (5-40); Vitamin D,25 Hydroxy 57.1 ng/mL (30-100); cholesterol:hdl ratio screen 4.07
== END | disposition home or self-care (01) ==
LOC: MFPLAB 09:27
PROVIDERS: PCP Family Medicine; Referring Provider Family Medicine; Visit Provider Family Medicine
DX: I48.0 Paroxysmal atrial fibrillation (principal); E03.8 Other specified hypothyroidism; E06.3 Autoimmune thyroiditis; M81.0 Age-related osteoporosis without current pathological fracture; I10 Essential (primary) hypertension; R73.09 Other abnormal glucose; R82.81 Pyuria
CPT/HCPCS: 80053; 80061; 81001; 82306; 83036; 83735; 84439; 84443; 87077; 87086; 87088; 87186

== ENCOUNTER → 2024-11-26 | Outpatient (CLI) | payer MEDICARE, BC, SELFPAY ==
[2024-11-26 12:30] LABS: Hematocrit 41.5 % (37-47); Hemoglobin 13.9 g/dL (12.0-15.0); Immature Granulocytes Count 0.010 X10^3/uL (0.0-0.0); Mean Corp Hgb Conc 33.5 g/dL (32-36); Mean Corpuscular Volume 88.3 fL (81-99); Mean Platelet Vol. 10.6 fl (6.2-12.0); NRBC Flagged by Analyzer 0 % (0-5); Platelet Count 183 K/mm3 (150-450); RBC Distribution Width CV 12.9 % (11.6-14.6); RBC Distribution Width SD 41.7 fl (35.1-43.9); Red Blood Count 4.70 M/mm3 (4.2-5.4); White Blood Count 5.2 K/mm3 (4.4-11.0)
== END | disposition home or self-care (01) ==
LOC: MFPLAB 11:11
PROVIDERS: PCP Family Medicine; Visit Provider Family Medicine
DX: R73.09 Other abnormal glucose (principal)
CPT/HCPCS: 83036; 85025